=== PATIENT | female | born 1965 | race Caucasian/White ===

== ENCOUNTER 2022-06-20 20:17 | Emergency (ER) | payer OTHER, SELFPAY ==
[2022-06-20 20:25] VITALS: BP 180/115; PULSE 82; RESP 18; TEMP 36.6; O2SAT 97; BMI 31.9
--- NOTE | 2022-06-20 20:35 | XRR_ITS ---
PROCEDURE INFORMATION: Exam: XR Left Foot Exam date and time: 06/20/2022 8:59 PM Age: 57 years old Clinical indication: Injury or trauma; Other: Stubbed 3rd digit; Blunt trauma; Foot; Left; Additional info: Middle toe injury TECHNIQUE: Imaging protocol: Radiologic exam of the left foot. Views: 3 or more views. COMPARISON: No relevant prior studies available. FINDINGS: Bones/joints: Calcaneal spur. Soft tissues: Normal. XR/XR foot LT min 3V* [id number] IMPRESSION: 1. No acute findings. 2. Please see toe x-ray report.
--- NOTE | 2022-06-20 20:43 | XRR_ITS ---
PROCEDURE INFORMATION: Exam: XR Left Toe(s) Exam date and time: 06/20/2022 8:59 PM Age: 57 years old Clinical indication: Injury or trauma; Other: Stubbed toe on door. Blunt trauma; Toes; Left lesser toe(s); Additional info: Injury, pain, PT reports previous toe fractures TECHNIQUE: Imaging protocol: Radiologic exam of the left toes. Views: Minimum 2 views. COMPARISON: No relevant prior studies available. FINDINGS: Bones/joints: Possible hairline nondisplaced fracture involving the volar base of the middle toe middle phalanx. Soft tissues: Normal. XR/XR toe LT min 2V [id number] IMPRESSION: Possible hairline nondisplaced fracture involving the volar base of the middle toe middle phalanx.
[2022-06-20] MEDS: ketorolac 10 mg Tablet PO (22:14)
[2022-06-20 22:28] VITALS: PULSE 81; RESP 18; O2SAT 97
--- NOTE | 2022-06-20 22:52 | ED_ITS ---
HPI - Extremity Problem General: Chief complaint: Extremity Injury, Lower Stated complaint: left foot injury Time Seen by Provider: 06/20/22 20:44 Source: patient Mode of arrival: ambulatory Limitations: no limitations History of Present Illness: Patient presents emergency department today for evaluation treatment of injury to her left toes #3 and 4 after impacting them on a door at home. Patient states she was caring some baby checks into her house and, used her shoulder to bump open the door. She states the door opened into the cabinets which caused it to come back and, the bottom of the door then impacted her toes. Patient had an abrasion that had quite a bit of bleeding- resolved at this time, but has tenderness now in these toes with concerns of deformity to her fourth toe. Patient has difficulty with any weightbearing and ambulation. Review of Systems General: Reports: 10 or more systems reviewed and unremarkable except in HPI and below Musc: Reports: joint pain, joint swelling and deformity (Left fourth toe) Physical Exam Const: COMMON NORMALS: no acute distress, patient oriented x3 and alert HENMT: COMMON NORMALS: normocephalic, atraumatic and hearing grossly normal bilaterally HEAD & SCALP: normocephalic and atraumatic Eye: COMMON NORMALS: Equal, round and reactive pupils present, EOMs intact bilaterally and conjunctivae normal CONJUNCTIVA: Yes conjunctivae normal PUPIL: Yes Equal, round and reactive pupils present Neck/C-Spine: COMMON NORMALS: full ROM and no JVD Lymph: LYMPHATIC: no lymphadenopathy noted Resp: COMMON NORMALS: normal respiratory effort, No retractions and No use of accessory muscles Cardio: COMMON NORMALS: no JVD and regular rate RATE: regular rate Extremity: NARRATIVE EXTREMITY EXAM: Patient has some mild swelling of the left third toe with an abrasion noted to the tip of the toe-not affecting the nail. It is scabbed without active bleeding. It is tender to touch. Patient with significant tenderness of her left fourth toe with mild deformity affecting the distal end. Neuro: COMMON NORMALS: patient oriented x3 SENSORIUM/ORIENTATION: Yes alert Psych: COMMON NORMALS: mental status grossly normal, Normal thought process present, cooperative and normal affect THOUGHT PROCESS: Normal thought process present Skin: COMMON NORMALS: no rashes or lesions noted and turgor normal GENERAL SKIN EXAM: no rashes or lesions noted and turgor normal Course Vital Signs: Vital signs: Vital Signs Temperature 97.9 F 06/20/22 20:25 Pulse Rate 81 06/20/22 22:28 Respiratory Rate 18 06/20/22 22:28 Blood Pressure 180/115 06/20/22 20:25 Pulse Oximetry 97 06/20/22 22:28 Oxygen Delivery Me thod 06/20/22 20:25 MDM - Extremity (Nontraumatic) Medical Decision Making Patient presents emergency department today for evaluation and treatment of injury sustained to 2 of the toes on the left foot. Patient has an abrasion to 1 with bleeding controlled and concerns of deformity to another. Patient's x- rays were read as negative however, in my opinion it appears the distal phalanx of the left fourth digit is dislocated. Physical examination also confirms the suspicion as it is physically deformed and, on palpation is not symmetrical to her right fourth toe. Patient's allergies had not been updated and originally lidocaine had been ordered to perform a ring block. Patient notified us of her allergy and we discussed other options for her pain. Patient is also allergic to all forms of pain medication other than NSAIDs. After much discussion, patient request to have her toes set without any type of pain management. The end of the patient's toe was able to be successfully reduced. Palpable pop resulting in anatomical alignment was noted. Toe was then saad taped. Given the discomfort patient has with any weightbearing we put her into a walking boot to help with her ambulation and to keep weight off of her toes. Encouraged her to use this for the next few days before switching over to closed toed shoes until it is finally healed. Also encouraged her to follow-up with primary care. Patient is given a prescription for Toradol to help with her discomfort and also encouraged application of ice. Differential Diagnosis Likely gout (Toe fracture, toe dislocation, toe contusion, toe abrasion) and cellulitis Lab Data Radiology Impressions Foot X-Ray 06/20/22 20:35 IMPRESSION: 1. No acute findings. 2. Please see toe x-ray report. Toe X-Ray 06/20/22 20:43 IMPRESSION: Possible hairline nondisplaced fracture involving the volar base of the middle toe middle phalanx. Discharge Plan Discharge Patient Disposition: Home Clinical Impression: Closed dislocation of toe of left foot, Abrasion of toe, left Condition: Stable Prescriptions: New ketorolac 10 mg tablet 10 mg PO Q8H PRN (Reason: pain) Qty: 30 0RF Discharge Orders: Discharge ED (Routine); Ordered 06/20/22 Ordered By: Natasha Dawson Discharge Activity: Limit activity as instructed Patient Instructions: Dislocation - Toe Activity Restrictions/Additional Instructions: We were able to reduce the dislocation of the end of your left fourth toe. The x-ray indicated the potential for a possible hairline crack in the middle bone of your left third toe however, was not confirmatory. We do recommend trying to keep your toes saad taped together. In an effort to help keep you more mobile and ambulatory we have provided you a walking boot for your comfort. You may wish to use this for the next 5 to 7 days. After that, you may wish to wear protective, covered shoes until full healing and resolution of pain occurs. You can apply ice for 15 to 20 minutes, multiple times through the day as well. Follow-up with your primary care if needed. Coding Level of Care Code ED [employer] for Perla [facility]
--- NOTE | 2022-07-01 13:14 | DCPLANNER ---
customer account manager called patient due to no primary care physician - no answer at this time - a voicemail was left for patient to return rn case mgr phone call.
== END 2022-06-20 22:29 | disposition home or self-care (01) ==
PROVIDERS: Emergency Provider Physician Assistant
DX: S93.105A Unspecified dislocation of left toe(s), initial encounter (principal); S90.415A Abrasion, left lesser toe(s), initial encounter; W22.8XXA Striking against or struck by other objects, initial encounter
CPT/HCPCS: 73630; 73660; 99283

== ENCOUNTER 2022-06-23 01:03 | Inpatient (IN) | payer OTHER, SELFPAY ==
[2022-06-23] VITALS (13 sets, daily range): BP systolic 130–173; BP diastolic 80–132; PULSE 62–93; RESP 15–26; TEMP 36.6–36.8; O2SAT 94–99; BMI 31.9
--- NOTE | 2022-06-23 01:17 | CTR_ITS ---
PROCEDURE INFORMATION: Exam: CT Abdomen And Pelvis Without Contrast Exam date and time: 06/23/2022 1:43 AM Age: 57 years old Clinical indication: Nausea and vomiting; Abdominal pain; Prior surgery; Surgery type: Gb; Patient HX: C/O left flank pain with n/v. History of surgical removal of left staghorn. TECHNIQUE: Imaging protocol: Computed tomography of the abdomen and pelvis without contrast. Radiation optimization: All CT scans at this facility use at least one of these dose optimization techniques: automated exposure control; mA and/or kV adjustment per patient size (includes targeted exams where dose is matched to clinical indication); or iterative reconstruction. REPORTING DATA: Count of CT and Cardiac NM exams in prior 12 months: This patient has received 0 known CTs and 0 known cardiac nuclear medicine studies in the 12 months prior to the current study. COMPARISON: CT abdomen pelvis w con* [id number] 01/19/2017 7:19 PM RADIATION DOSE METRICS: Total DLP (mGy-cm): 1049.8 FINDINGS: Lungs: The partially imaged lung bases are grossly clear. Liver: No focal intrahepatic lesions are seen. Gallbladder and bile ducts: The gallbladder has been removed. Pancreas: No intraparenchymal lesions are seen. No ductal dilation. Spleen: No intraparenchymal lesions are seen. No splenomegaly. Adrenal glands: Normal. No mass. Kidneys and ureters: Left UPJ 8 mm calculus on series 3, image 94 resulting in moderate left hydronephrosis. Multiple other nonobstructing left renal calculi including a irregular inferior pole calculus that measures up to approximately 11 mm x 8 mm in axial dimension on series 3, image 97. The left kidney appears mildly edematous and there is mild left perinephric fat stranding. There are three nonobstructing 2 mm right renal calculi on series 3 images 89, 90, and 100. Subtle right renal midpole 1.5 cm low attenuating lesion on series 3, image 85 likely represents a benign cyst. No right hydroureter or hydronephrosis. Stomach and bowel: No pathologic bowel dilatation. No obstruction. Appendix: No evidence of appendicitis. Intraperitoneal space: No free air. No abnormal walled-off fluid collection. Vasculature: No abdominal aortic aneurysm. Lymph nodes: No pathologically enlarged lymph nodes. Urinary bladder: Unremarkable as visualized. Reproductive: Unremarkable as visualized. Bones/joints: No acute fracture. [id number] degenerative changes of the partially imaged spine. Soft tissues: Very small fat containing umbilical hernia. CT/CT kidney stone [id number] IMPRESSION: 1. Left UPJ 8 mm calculus on series 3, image 94 resulting in moderate left hydronephrosis. The left kidney appears mildly edematous and there is mild left perinephric fat stranding, can not exclude left pyelonephritis. Correlate and follow-up as clinically indicated. 2. Other bilateral nonobstructing renal calculi as described above. No right hydroureter or hydronephrosis. 3. Other chronic/incidental findings as described above. COMMENTS: Consistent with the [employer]'s Incidental Findings Committee white paper (J Am Kusum Radiol 2018): Any incidental renal lesion less than 1 cm or classified as too small to characterize, or any incidental cystic renal lesion characterized as simple-appearing, is likely benign. No follow-up imaging is recommended for these lesions per consensus recommendations based on imaging criteria.
--- NOTE | 2022-06-23 01:17 | W.ED.ABDPA2 ---
HPI - Abdominal Pain General: Chief Complaint: Abdominal Pain Stated Complaint: Left Side Possible Kidney Time Seen by Provider: 06/23/22 01:13 Source: patient Mode of arrival: ambulatory Limitations: no limitations History of Present Illness: 57-year-old female who states that she been having left flank pain since 6:00 this evening she states it severe in nature rates it a 9 out of 10 she denies any worsening proving factors she is also had nausea and vomiting with this pain she had history of kidney stones this feels similar. Denies any dysuria. Associated Symptoms: Reports nausea and vomiting; Denies chills and fever(s) Review of Systems Const: Denies: fever(s), chills, body aches or change in appetite Eyes: Denies: blurry vision or eye discomfort ENMT: Denies: throat pain or dental pain Card: Denies: chest pain Resp: Denies: dyspnea GI: Reports: nausea and vomiting : Reports: flank pain Musc: Denies: neck pain or back pain Skin/Breast: Denies: rash Neuro: Denies: headache(s) Psych: Denies: depression Tyler/Lymph: Denies: easy bruising All/Imm: Denies: urticaria PFSH ED PFSH: Medical History No pertinent past medical history Social History (Updated 06/23/22 @ 01:18 by Burke Lau MD) Substance/Drug Use: never Physical Exam Const: COMMON NORMALS: no acute distress, patient oriented x3 and healthy appearing HENMT: COMMON NORMALS: normocephalic and atraumatic HEAD & SCALP: normocephalic and atraumatic Eye: COMMON NORMALS: Equal, round and reactive pupils present and EOMs intact bilaterally PUPIL: Yes Equal, round and reactive pupils present Neck/C-Spine: COMMON NORMALS: full ROM and supple Chest: COMMONS NORMALS: normal inspection of the chest and normal palpation of entire chest wall Resp: COMMON NORMALS: normal respiratory effort, No retractions, No use of accessory muscles and clear to auscultation bilaterally AUSCULTATION: clear to auscultation bilaterally Cardio: COMMON NORMALS: regular rate, regular rhythm and No murmurs present (Cardio) RATE: regular rate RHYTHM: regular rhythm GI: COMMON NORMALS: Normal to inspection, nondistended, normoactive bowel sounds present, Soft to palpation, non-tender and no masses PALPATION: Yes Soft to palpation Extremity: COMMON NORMALS: normal to inspection and full ROM Neuro: COMMON NORMALS: patient oriented x3, moves all extremities and no focal motor deficits Psych: COMMON NORMALS: mental status grossly normal, Normal thought process present and cooperative THOUGHT PROCESS: Normal thought process present Skin: COMMON NORMALS: no rashes or lesions noted and no wounds GENERAL SKIN EXAM: no rashes or lesions noted Course Vital Signs: Vital signs: Vital Signs Temperature 98.1 F 06/23/22 01:04 Pulse Rate 68 06/23/22 03:14 Respiratory Rate 18 06/23/22 03:14 Blood Pressure 151/87 06/23/22 03:14 Pulse Oximetry 95 06/23/22 03:14 Oxygen Delivery Me thod 06/23/22 03:14 MDM - Abdominal Pain Medical Decision Making Patient presents here with kidney stone and its proximal 8 mm also with nitrite positive urine of spoke to Dr. Porras who will admit this time will give IV antibiotics her pain has improved here. Lab Data 06/23/22 01:20 06/23/22 01:20 Labs/Radiology: Radiology Impressions Abdomen/Pelvis CT 06/23/22 01:17 IMPRESSION: 1. Left UPJ 8 mm calculus on series 3, image 94 resulting in moderate left hydronephrosis. The left kidney appears mildly edematous and there is mild left perinephric fat stranding, can not exclude left pyelonephritis. Correlate and follow-up as clinically indicated. 2. Other bilateral nonobstructing renal calculi as described above. No right hydroureter or hydronephrosis. 3. Other chronic/incidental findings as described above. COMMENTS: Consistent with the [employer]'s Incidental Findings Committee white paper (J Am Kusum Radiol 2018): Any incidental renal lesion less than 1 cm or classified as too small to characterize, or any incidental cystic renal lesion characterized as simple-appearing, is likely benign. No follow-up imaging is recommended for these lesions per consensus recommendations based on imaging criteria. Laboratory Results WBC 9.6 10^3/uL (4.0-10.0) 06/23/22 01:20 RBC 4.75 10^6/uL (4.1-5.3) 06/23/22 01:20 Hgb 14.0 g/dL (11.5-15.3) 06/23/22 01:20 Hct 43.5 % (37.0-47.0) 06/23/22 01:20 MCV 91.6 fl (81-99) 06/23/22 01:20 MCH 29.5 pg (28.0-34.0) 06/23/22 01:20 MCHC 32.2 g/dL (30.0-36.0) 06/23/22 01:20 RDW 13.2 % (12.1-15.1) 06/23/22 01:20 Plt Count 259 10^3/cmm (130-400) 06/23/22 01:20 MPV 10.1 fL (7.4-10.4) 06/23/22 01:20 Neut % (Auto) 65.1 % 06/23/22 01:20 Lymph % (Auto) 19.6 % 06/23/22 01:20 [place] % (Auto) 6.6 % 06/23/22 01:20 Eos % (Auto) 7.6 % 06/23/22 01:20 Baso % (Auto) 0.9 % 06/23/22 01:20 Neut # (Auto) 6.26 10^3/uL (1.8-7.7) 06/23/22 01:20 Lymph # (Auto) 1.9 10^3/uL (0.8-4.8) 06/23/22 01:20 [place] # (Auto) 0.6 10^3/uL (0.2-0.9) 06/23/22 01:20 Eos # (Auto) 0.7 10^3/uL (0.0-0.8) 06/23/22 01:20 Baso # (Auto) 0.1 10^3/uL (0.0-0.1) 06/23/22 01:20 Nucleated RBC % (auto) 0 % 06/23/22 01:20 Nucleated RBCs # 0.0 /100WBC 06/23/22 01:20 Sodium 141 mmol/L (136-145) 06/23/22 01:20 Potassium 3.9 mmol/L (3.5-5.1) 06/23/22 01:20 Chloride 105 mmol/L (98-107) 06/23/22 01:20 Carbon Dioxide 25 mmol/L (22-29) 06/23/22 01:20 Anion Gap 14.9 (5-19) 06/23/22 01:20 BUN 12 mg/dL (6-20) 06/23/22 01:20 Creatinine 0.9 mg/dL (0.5-0.9) 06/23/22 01:20 GFR Calculation 64.1 mL/min (90-130) L 06/23/22 01:20 Glucose 125 mg/dL (65-115) H 06/23/22 01:20 Calculated Osmolality 293 mOsm/kg (285-295) 06/23/22 01:20 Calcium 11.0 mg/dL (8.5-10.5) H 06/23/22 01:20 Total Bilirubin 0.2 mg/dL (0.15-1.2) 06/23/22 01:20 AST 18 U/L (0-32) 06/23/22 01:20 ALT 15 U/L (0-33) 06/23/22 01:20 Alkaline Phosphatase 90 U/L (35-105) 06/23/22 01:20 Total Protein 7.1 g/dL (6.6-8.7) 06/23/22 01:20 Albumin 3.9 g/dL (3.5-5.2) 06/23/22 01:20 Globulin 3.2 g/dL (1.3-4.6) 06/23/22 01:20 Lipase 61 U/L (13-60) H 06/23/22 01:20 Urine Color Yellow (Yellow) 06/23/22 02:04 Urine Appearance Clear (CLEAR) 06/23/22 02:04 Urine pH 7 (5-7) 06/23/22 02:04 Ur Specific [place] 1.015 (1.005-1.030) 06/23/22 02:04 Urine Protein Trace (Negative) 06/23/22 02:04 Urine Glucose (UA) Norm (Normal) 06/23/22 02:04 Urine Ketones Negative (Negative) 06/23/22 02:04 Urine Blood 2+ (Negative) H 06/23/22 02:04 Urine Nitrate Positive (Negative) H 06/23/22 02:04 Urine Bilirubin Neg (Negative) 06/23/22 02:04 Urine Urobilinogen Norm mg/dL (Negative) 06/23/22 02:04 Ur Leukocyte Esterase Negative (Negative) 06/23/22 02:04 Urine RBC 0-4 /hpf (0-2) H 06/23/22 02:04 Urine WBC 0-4 /hpf (0-5) H 06/23/22 02:04 Ur Squamous Epith Cells 0-4 /hpf (0-5) H 06/23/22 02:04 Amorphous Sediment 1+ /hpf 06/23/22 02:04 Urine Bacteria Trace /hpf (NONE) 06/23/22 02:04 Discharge Plan Discharge Patient Disposition: Admitted As Inpatient Clinical Impression: Kidney stone Discharge Diet: Advance as tolerated Coding Level of Care Code ED [employer] for Perla Bishop
[2022-06-23 01:27] LABS: Basophils # 0.1 10^3/uL (0.0-0.1); Basophils % 0.9 %; Eosinophils # 0.7 10^3/uL (0.0-0.8); Eosinophils % 7.6 %; Hematocrit 43.5 % (37.0-47.0); Lymphocytes # 1.9 10^3/uL (0.8-4.8); Lymphocytes % 19.6 %; Mean Corpuscular HGB Conc 32.2 g/dL (30.0-36.0); Mean Corpuscular Hemoglobin 29.5 pg (28.0-34.0); Mean Corpuscular Volume 91.6 fl (81-99); Mean Platelet Volume 10.1 fL (7.4-10.4); Monocytes # 0.6 10^3/uL (0.2-0.9); Monocytes % 6.6 %; Neutrophils # 6.26 10^3/uL (1.8-7.7); Neutrophils % 65.1 %; Nucleated Red Blood Cells % 0 %; Platelet Count 259 10^3/cmm (130-400); Red Blood Count 4.75 10^6/uL (4.1-5.3); Red Cell Distribution Width 13.2 % (12.1-15.1); White Blood Count 9.6 10^3/uL (4.0-10.0)
[2022-06-23] MEDS: sodium chloride 0.9% 1,000 ML 999 ML IV (01:27)
[2022-06-23] MEDS: ondansetron 2 mg/ML SDV 2 mL 4 MG IVP (01:28)
[2022-06-23] MEDS: HYDROmorphone 1 mg/mL INJ 1 mL IVP ×2 (01:28→03:34)
[2022-06-23] MEDS: metoclopramide 5 mg/mL SDV 2 mL 10 MG IVP (01:35)
[2022-06-23] MEDS: diphenhydrAMINE 50 mg/mL SDV 1mL IVP (01:35)
[2022-06-23 01:41] LABS: Alanine Aminotransferase 15 U/L (0-33); Albumin Level 3.9 g/dL (3.5-5.2); Alkaline Phosphatase 90 U/L (35-105); Anion Gap 14.9 (5-19); Aspartate Amino Transferase 18 U/L (0-32); Blood Urea Nitrogen 12 mg/dL (6-20); Carbon Dioxide 25 mmol/L (22-29); Chloride 105 mmol/L (98-107); Globulin 3.2 g/dL (1.3-4.6); Glomerular Filtration Rate 64.1 mL/min (90-130); Glucose 125 mg/dL (65-115); Lipase 61 U/L (13-60); Osmolality Calculated 293 mOsm/kg (285-295); Potassium 3.9 mmol/L (3.5-5.1); Sodium 141 mmol/L (136-145); Total Bilirubin 0.2 mg/dL (0.15-1.2); Total Protein 7.1 g/dL (6.6-8.7)
[2022-06-23 02:31] LABS: Urine Appearance Clear (CLEAR); Urine Color Yellow (Yellow); pH Urine 7 (5-7)
[2022-06-23 02:32] LABS: Add Urine Culture? No; Add Urine Microscopic? YES; Amorphous Sediment Urine 1+ /hpf; Bacteria Urine TRACE /hpf; Bilirubin Urine Neg (Negative); Blood Urine 2+ (Negative); Glucose Urine UA Norm (Normal); Ketones Urine Negative (Negative); Leukocyte Esterase Urine Negative (Negative); Nitrate Urine Positive (Negative); Protein Urine Trace (Negative); RBC Urine 0-4 /hpf (0-2); Specific Gravity, Urine 1.015 (1.005-1.030); Squamous Epithelial Cell Urine 0-4 /hpf (0-5); Urobilinogen Urine Norm (Negative); WBC Urine 0-4 /hpf (0-5)
[2022-06-23] MEDS: cefTRIAXone 1,000 MG in sodium chloride 0.9% (plus) 50 ML 100 MG IV ×2 (03:34→16:37)
[2022-06-23] MEDS: sodium chloride 0.9% 1,000 ML 100 ML IV (04:58)
--- NOTE | 2022-06-23 06:45 | PM.HP ---
Providers/Chief Complaint Admitting Physician: Alcides Vasquez MD Chief Complaint: Left Side Possible Kidney History of Present Illness Rosa M Sanz is a 57 year old female previously evaluated in 2017 with a history of obstructive pyelonephritis with treatment related to initial stent placement in the face of infection followed by delayed ESWL with complete resolution on follow-up. Was instructed to follow-up in 6 months with a KUB but did not. She was admitted last night through the emergency department with complaints of an obstructing 8 mm left proximal ureteral stone with evidence of UTI but no sepsis. White count was normal. She had been afebrile. CT scan findings: Multiple small punctate stones in the RIGHT kidney, multiple moderate-sized stones in the left kidney, 8 mm stone at the left UPJ with obstruction. Her overall stone burden has substantially increased since December 2016 at time of her last CT scan. Because of the concern for obstruction and infection she was admitted last night for further evaluation and treatment. Pain was described as severe and typical for renal colic. Additional symptoms included nausea and vomiting. No fever or chills. Patient stated that fairly recently she had a percutaneous nephrostolithotomy by Dr. Benjamin Hdz at [facility]. She was not aware of stone analysis. She has a follow-up appointment scheduled next week with Dr. Hdz I reviewed in detail with the patient the findings and the concerns related to infection. She does not have any evidence of sepsis. I recommended that she continue antibiotics today and then plan for cystoscopy and left ureteral stent placement tomorrow if all goes well as far as infectious concerns then consider endoscopic treatment of the stone both ureteral as well as the residual fragments in the left lower pole and other accessible stones. Did review with her that the most important thing that was drainage if there is any question of factious concern. All of this was explained in detail. She has given informed consent. Benefits risk potential complications alternatives thoroughly reviewed. She has a good understanding. We also discussed the importance of long-term follow-up. Reviewed my residential in August. We will encourage her to follow-up with Dr. Hdz long-term for stone risk management. 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 Review of Systems Const: Denies: fever(s) or chills Eyes: Denies: change in vision or eye discharge ENMT: Denies: hoarseness Card: Denies: chest pain or palpitations Resp: Denies: dyspnea or productive cough GI: Reports: abdominal pain, nausea and vomiting : Reports: flank pain; Denies: dysuria Musc: Reports: back pain; Denies: joint redness Skin/Breast: Denies: jaundice Neuro: Denies: confusion, behavioral changes or Slurred speech present Psych: Denies: memory loss Endo: Denies: flushing Tyler/Lymph: Denies: easy bruising or easy bleeding All/Imm: Denies: urticaria or acute wheezing Medications/Allergies Home Medications Medication Instructions Recorded Confirmed Last Taken Type ketorolac 10 mg tablet 10 mg PO Q8H PRN pain #30 tabs 06/20/22 Unknown Rx Allergies Allergy/AdvReac Type Severity Reaction Status Date / Time albuterol Allergy Unknown Verified 06/23/22 01:32 codeine Allergy Unknown Verified 06/23/22 01:32 lidocaine Allergy ALGY-Anaphy Verified 06/20/22 21:49 laxis meperidine [From Demerol] Allergy Unknown Verified 06/23/22 01:32 Penicillins Allergy Unknown Verified 06/23/22 01:32 promethazine [From Phenergan] Allergy Unknown Verified 06/23/22 01:32 PFSH Acute PFSH: Medical History (Updated 06/23/22 @ 06:56 by Alcides Vasquez MD) Urolithiasis Renal and ureteral calculi history Surgical History (Updated 06/23/22 @ 07:35 by Alcides Vasquez MD) History of bilateral breast reduction surgery History of cholecystectomy History of lithotripsy History of removal of calculus of renal pelvis through percutaneous nephrostomy History of ureter stent Family History (Updated 06/23/22 @ 06:54 by Alcides Vasquez MD) Denies family history of Anesthesia complication Bleeding disorder Social History (Updated 06/23/22 @ 06:54 by Alcides Vasquez MD) Smoking and tobacco status: never smoked Substance/Drug Use: never Vitals/I&O/Wt Last Vital Signs Temp 97.9 F 06/23/22 04:29 Pulse 73 06/23/22 04:29 Resp 17 06/23/22 04:29 BP 165/92 06/23/22 04:29 Pulse Ox 94 06/23/22 04:29 O2 Del Method 06/23/22 04:15 06/22/22 06/22/22 06/23/22 14:59 22:59 06:59 Intake Total 1050 / 1050 Balance 1050 / 1050 Weight last 48 hrs Weight 198 lb Weight 198 lb Physical Exam Const: COMMON NORMALS: alert and well nourished GENERAL APPEARANCE: well kempt and well developed ORIENTATION/CONSCIOUSNESS: not confused HENMT: COMMON NORMALS: normocephalic HEAD & SCALP: normal to inspection and normocephalic Eye: COMMON NORMALS: conjunctivae normal and no scleral icterus CONJUNCTIVA: Yes conjunctivae normal Neck/C-Spine: GENERAL: Yes normal visual inspection Lymph: LYMPHATIC: no lymphadenopathy noted and no lymphedema noted Chest: OTHER: Normal chest movements Resp: COMMON NORMALS: normal respiratory effort EFFORT & INSPECTION: Yes able to speak in complete sentences, No labored and No Actively coughing Cardio: COMMON NORMALS: regular rate and regular rhythm GI: OTHER: Left-sided abdominal tenderness no masses. Normal active bowel sounds. : OTHER: Left CVA tenderness Extremity: COMMON NORMALS: no clubbing, cyanosis or edema Neuro: COMMON NORMALS: no focal motor deficits SENSORIUM/ORIENTATION: Yes alert Psych: COMMON NORMALS: mental status grossly normal APPEARANCE: Yes grossly normal and Yes well kempt ATTITUDE: Yes calm and Yes engaged Skin: COMMON NORMALS: no rashes or lesions noted and no jaundice GENERAL SKIN EXAM: no rashes or lesions noted Data 06/23/22 01:20 06/23/22 01:20 A&P Assessment and plan (1) Left ureteral calculus: 8 millimeter left UPJ stone with obstruction complicated by UTI. No evidence of sepsis. (2) UTI (urinary tract infection): (3) Urolithiasis: Plan 1. Admit for IV antibiotics close observation 2. Consider stent placement and/or endoscopic treatment of the stone after antibiotic therapy Attestations Medical Necessity Statement*: UTI and obstructing stone Coding Level of Care Code Acute Code for [facility] Fwd Diagnoses Left ureteral calculus N20.1 UTI (urinary tract infection) N39.0 Urolithiasis N20.9
--- NOTE | 2022-06-23 09:07 | PC.PHAR ---
pt states she takes care of her own medications-pt states she is taking zoloft 25mg taking 12.5mg bid [facility] last filled 12/15/21 90d/s for 50mg daily-pt states she has a flovent 110mcg inhaler prn [facility] last filled 04/11/21-pt states she takes ultram 50mg hs prn [facility] not filled for pt ext med history shows last filled 50mg qid prn for 5 days filled 03/13/22 #20 5d/s-pt states she is no longer using the ipratropium 0.02% solution last filled 11/24/21 90d/s 1 vial daily-notes are made in the pharmacy comments
[2022-06-23] MEDS: morphine 4 mg/mL SDV 1 mL 2 MG IVP ×4 (09:55→23:24)
[2022-06-23] MEDS: D5-NS 0.45% + KCL 20 mEq 20 MEQ/1,000 ML BAG 75 MEQ IV ×2 (09:57→23:21)
[2022-06-23] MEDS: ketorolac 30 mg/mL INJ 15 MG IVP (17:52)
[2022-06-24] VITALS (20 sets, daily range): BP systolic 118–179; BP diastolic 70–99; PULSE 53–558; RESP 12–23; TEMP 36.2–37.2; O2SAT 91–98
[2022-06-24] MEDS: cefTRIAXone 1,000 MG in sodium chloride 0.9% (plus) 50 ML 100 MG IV ×2 (03:36→15:13)
--- NOTE | 2022-06-24 06:16 | PC.NURSE ---
transported to surgery for procedure.
--- NOTE | 2022-06-24 06:43 | PM.PN ---
Subjective Subjective: Urology follow-up Hospital day #2 Did well overnight. No fever or evidence of infectious progression on IV antibiotics. Pain well controlled. No stone passage. We reviewed her options again. These include: 1. Stent placement with delayed ureteroscopy or ESWL for treatment of the residual stones post left nephrostolithotomy 2. Attempt at endoscopic treatment of the stone assuming no evidence of hemodynamic instability 3. Continue IV antibiotics alone with hopes of spontaneous passage of the stones. I have recommended #2 as a reasonable option given her lack of infectious progression on antibiotics. Also reviewed that she may require a stent placement with delayed approach if there is any question about infectious concerns during the procedure or if access is not obtainable from a retrograde approach at that point a stent would be placed for passive dilation and reattempt later either with ESWL or ureteroscopy Procedure was discussed in detail. Explained expectations perioperatively. Benefits and risks thoroughly reviewed. Alternatives discussed as above. Informed consent obtained DECISION FOR SURGERY today Medications: Reviewed: Yes Vitals/I&O/Wt Last Vital Signs Temp 98.9 F 06/24/22 06:14 Pulse 80 06/24/22 06:14 Resp 16 06/24/22 06:14 BP 179/99 06/24/22 06:14 Pulse Ox 96 06/24/22 06:14 O2 Del Method 06/24/22 06:14 06/23/22 06/23/22 06/24/22 14:59 22:59 06:59 Intake Total 1181 / 1181 410 / 1591 1000 / 2591 Balance 1181 / 1181 410 / 1591 1000 / 2591 Weight last 48 hrs Weight 198 lb Weight 198 lb Physical Exam Const: COMMON NORMALS: alert and well nourished GENERAL APPEARANCE: well kempt and well developed ORIENTATION/CONSCIOUSNESS: not confused Chest: OTHER: Normal chest movements Resp: COMMON NORMALS: normal respiratory effort EFFORT & INSPECTION: Yes able to speak in complete sentences, No labored and No Actively coughing Cardio: COMMON NORMALS: regular rate and regular rhythm RATE: regular rate RHYTHM: regular rhythm : OTHER: Left CVA tenderness Neuro: COMMON NORMALS: no focal motor deficits SENSORIUM/ORIENTATION: Yes alert Psych: COMMON NORMALS: mental status grossly normal APPEARANCE: Yes grossly normal and Yes well kempt ATTITUDE: Yes calm and Yes engaged Skin: COMMON NORMALS: no rashes or lesions noted and no jaundice GENERAL SKIN EXAM: no rashes or lesions noted Data 06/23/22 01:20 06/23/22 01:20 A&P Assessment and plan (1) Left ureteral calculus: Obstructing left proximal ureteral stone Decision today to proceed for surgical intervention. (2) Urolithiasis: Some residual left renal calculi mostly in the lower pole and 1 in the interpolar area. Plan to try and access these with flexible ureterorenoscopy if clinical criteria met intraoperatively (3) UTI (urinary tract infection): No evidence of infection progression. Plan See [facility] Attestations Medical Necessity Statement*: Surgical intervention. We will watch over the day after the procedure to make sure there is no infection concerns. Discharge will be dependent upon primarily infectious concerns. Coding Level of Care Code Acute Code for [facility] Fwd Diagnoses Left ureteral calculus N20.1 Urolithiasis N20.9 UTI (urinary tract infection) N39.0
[2022-06-24] MEDS: sodium chloride 0.9% 1,000 ML 30 ML IV (06:50)
--- NOTE | 2022-06-24 07:00 | SC_ITS ---
WS: [id number] Exam: C-arm FL for Urology Date/Time of Exam: 06/24/2022 7:00 AM Reason For Exam: Left ureteroscopy A single anterior posterior C-arm image of the upper left abdomen is submitted. The image depicts a p igtail catheter ending in the upper left abdomen. No other significant finding on this limited study.
--- NOTE | 2022-06-24 08:44 | PM.OP ---
Operative Report Date of procedure: June 24, 2022 Pre-op diagnosis: 1. Left proximal ureteral stone with obstruction 2. Multiple left renal calculi 3. Recently diagnosed UTI without evidence of sepsis Post-op diagnosis: 1. Left proximal ureteral stone with obstruction 2. Multiple left renal calculi 3. Recently diagnosed UTI without evidence of sepsis Procedure done: 1. Cystoscopy, LEFT retrograde ureteropyelogram 2. Left ureteroscopy, laser lithotripsy 3. Left renoscopy laser lithotripsy different location 4. Left ureteral stent 5. Intraoperative fluoroscopy independent of radiology interpretation Implants: Left ureteral stent Specimens removed/disposition: Stone fragments Pathology: Stone fragments Surgeon: Pedro Estimated blood loss: Minimal Urine output: Not measured Complications: None Findings: Anesthesia: General Condition: Stable Disposition: PACU Intraoperative findings: The obstructing ureteral stone migrated into the kidney and it was fragmented completely with a 200 ?m thulium superpulse laser fiber. Second largest accumulation of stone was in the lower pole calyx and this was only partially accessible via flexible ureteroscopy with an extensive amount of time spent trying to manipulate the scope into position were all the stones could be lasered. Stent left indwelling without string. Brief History: Ms. Sanz is a very pleasant 57-year-old white female with a complex history of urolithiasis complicated by UTI. In February 2022 she underwent a left percutaneous nephrostolithotomy by Dr. Noel at [facility] in [facility]. She has scheduled follow-up with him. On the day of admission she presented to the emergency department with severe left renal colicky type symptoms typical for prior ureteral calculus and there was evidence of a UTI. White count was acceptable. No evidence of sepsis. Work-up demonstrated a 10 mm stone in the left proximal ureter, multiple residual stone fragments although overall small burden relative to what was removed at [facility] in the left kidney. Her urine did look infected. She was placed on IV antibiotics. She had no progression of infectious concerns and ultimately elected to proceed with endoscopic treatment of the obstructing stone and if possible and access could be obtained to the kidney easily with a retrograde approach then try to clear out his many residual stone fragments as possible See progress notes Procedure: After routine preoperative evaluation examination and obtaining of informed consent she was taken to the operating suite on 06/24/2022 where general anesthesia was administered without difficulty after appropriate timeout was performed, SCDs confirmed to be functioning, preoperative antibiotics administered, beta-mike protocol confirmed. Prepped and draped in usual sterile fashion in dorsolithotomy position pain careful attention to avoiding pressure points. 21 Setswana cystoscope with 30 degree lens was introduced into the urethral meatus and advanced into the bladder without difficulty. The bladder was systematically examined. No stones were seen. An 8 Setswana cone-tip catheter was intubated into the left ureteral orifice for left retrograde ureteropyelogram which demonstrated: Normal course and caliber of the left ureter from the ureteral orifice up to the proximal ureter where a filling defect consistent with a stone seen on CT scan was identified. The ureter proximal to that point was dilated. The additional stones were not readily identified on fluoroscopy. Flexible tip guidewire was then advanced up the left ureter bypassing the stone curling in the area of the upper pole calyx. A second guidewire was then passed. The first was secured to the drapes as a safety wire the second was used as a working wire. The inner sheath of a 38 cm ureteral access sheath was then advanced up the left ureter as as a dilator and then the full access sheath was advanced over the guidewire to just below the level of the stone. A 7 Setswana offset semirigid ureteroscope was then advanced over the guidewire to the stone which was discovered to have migrated proximally into the renal pelvis and not accessible via the rigid scope. At scope was then exchanged for a flexible ureteroscope which easily access the renal pelvis the stone was identified being in an upper pole calyx and it was fragmented completely with a 200 ?m thulium superpulse laser fiber. There were no substantial fragments remaining and it was just essentially sand. The scope was then redirected into several different calyces. The largest bulk of residual stones post percutaneous nephrostolithotomy were in the lower pole. These were only partially accessible with the scope. Laser lithotripsy was performed on them but there still remained a fairly sizable amount of stone that just could not be reached with different manipulation tactics. Ultimately the procedure was completed after access was exhausted for those residual stones. The system was carefully inspected again and no other obvious large pieces could be identified other than those not accessible. The access sheath was then backed onto the hub and the ureter was carefully inspected as the scope was withdrawn. The ureter was in good shape. Cystoscope was then backloaded over the safety wire and a 7 Setswana by 28 cm double-pigtail stent was advanced over the guidewire through the cystoscope into appropriate position as confirmed via fluoroscopy and cystoscopy. Stent was confirmed to be functioning. The bladder was drained. There is a few little small fragments in the bladder that were flushed out to be sent as part of the specimen. Specimen consisted mostly of grit and sand. She tolerated procedure well without complications and was awakened in the operating room and returned to the PACU in stable condition. PLANS: 1. Observe throughout the day. Potentially discharged this evening or continue observation overnight to ensure no concerns related to potential infectious progression 2. We will plan on leaving the stent in for about a week or 2. Follow-up will be arranged at discharge
[2022-06-24] MEDS: ondansetron 2 mg/ML SDV 2 mL 4 MG IVP (09:02)
[2022-06-24] MEDS: scopolamine 1.5 Patch 1 PATCH TRANSDERMA (09:02)
--- NOTE | 2022-06-24 09:08 | PC.NURSE ---
Nausea on arrival to PACU. Scope patch per Dr. Ayala. Evelyn per orders.
--- NOTE | 2022-06-24 09:45 | ANES.PREANE2 ---
Pre-Anesthetic Assessment Height/Weight: Height 1.68 m Weight 89.811 kg Temp Pulse Resp BP Pulse Ox O2 Del Method O2 Flow Rate 97.4 F L 558 H 20 H 120/74 95 2 06/24/22 09:30 06/24/22 09:30 06/24/22 09:30 06/24/22 09:30 06/24/22 09:30 06/24/22 09:30 06/24/22 09:25 Operation Date: 06/24/22 07:00 Proposed Procedures p Cystoscopy(Left) - Alcides Vasquez MD s Retrograde Pyelogram(Left) - Alcides Vasquez MD s Ureteroscopy(Left) - Alcides Vasquez MD s Laser Lithotripsy(Left) - Alcides Vasquez MD s Ureteral Stent Placement(Left) - Alcides Vasquez MD Familial anesthetic complications: none Was Beta Roxana taken within 24 hours: N/A Was Clonidine taken within 24 hours: N/A Social No alcohol and No tobacco Exam alert, oriented x 3, clear to auscultation bilaterally and regular rate & rhythm Airway Submandibular: within normal limits Cervical ROM: within normal limits Mallampati: Class II Dentition: full Renal stones Metabolic Morbid Obesity Musc/[facility] Osteoarthritis/DJD Neuropsych Anxiety and Depression Anesthetic Plan ASA status: 2 Anesthesia: General Medications/Allergies Home Medications Medication Instructions Recorded Confirmed Last Taken Type ketorolac 10 mg tablet 10 mg PO Q8H PRN pain #30 tabs 06/20/22 06/23/22 Unknown Rx ascorbic acid (vitamin C) 500 mg 500 mg PO QAM 06/23/22 06/23/22 Unknown History tablet (Vitamin C) cyanocobalamin (vitamin B-12) 1,000 mcg PO QAM 06/23/22 06/23/22 Unknown History 1,000 mcg tablet (Vitamin B-12) epinephrine 0.3 mg/0.3 mL 0.3 mg IM PRN PRN Anaphylaxis 06/23/22 06/23/22 Unknown History injection, auto-injector (EpiPen 2-Howard) fluticasone propionate 110 1 puff inhalation DAILY PRN unknown 06/23/22 06/23/22 Unknown History mcg/actuation HFA aerosol inhaler (Flovent HFA) sertraline 25 mg tablet (Zoloft) 12.5 mg PO BID 06/23/22 06/23/22 Unknown History tramadol 50 mg tablet 50 mg PO BEDTIME PRN sleep/pain 06/23/22 06/23/22 Unknown History zinc acetate 50 mg (zinc) capsule 50 mg PO QAM 06/23/22 06/23/22 Unknown History Allergies Allergy/AdvReac Type Severity Reaction Status Date / Time acetaminophen [From Percocet] Allergy Unknown Verified 06/23/22 09:07 albuterol Allergy Unknown Verified 06/23/22 01:32 cox Allergy Unknown Verified 06/23/22 09:07 codeine Allergy Unknown Verified 06/23/22 01:32 grass pollen Allergy Unconscious Verified 06/23/22 09:07 lidocaine Allergy ALGY-Anaphy Verified 06/20/22 21:49 laxis meperidine [From Demerol] Allergy Unknown Verified 06/23/22 01:32 oxycodone [From Percocet] Allergy Unknown Verified 06/23/22 09:07 Penicillins Allergy Unknown Verified 06/23/22 01:32 promethazine [From Phenergan] Allergy Unknown Verified 06/23/22 01:32 tree and shrub pollen Allergy Unknown Verified 06/23/22 09:07 Current Medications Generic Name Dose Route Start Last Admin Trade Name Freq PRN Reason Stop Dose Admin Potassium Chloride/Dextrose/Sod Cl 20 meq in 1,000 mls @ 75 mls/hr 06/23/22 07:30 06/23/22 23:21 D5-Ns 0.45% + Kcl 20 Meq IV 75 mls/hr .[id number] MIGUEL Administration Ceftriaxone Sodium 1,000 mg/ 50 mls @ 100 mls/hr 06/23/22 15:30 06/24/22 03:36 Sodium Chloride IV 100 mls/hr Q12H MIGUEL Administration Protocol Sodium Chloride 1,000 mls @ 30 mls/hr 06/24/22 06:30 06/24/22 06:50 Sodium Chloride 0.9% IV 06/25/22 06:29 30 mls/hr .Q24H MIGUEL Administration Ketorolac Tromethamine 15 mg 06/23/22 07:25 06/23/22 17:52 Ketorolac 30 Mg/Ml Inj IVP 06/28/22 07:24 15 mg Q6H PRN Administration MODERATE PAIN Morphine Sulfate 2 mg 06/23/22 07:25 06/23/22 23:24 Morphine 4 Mg/Ml Sdv 1 Ml IVP 2 mg Q2H PRN Administration SEVERE PAIN Ondansetron HCl 4 mg 06/24/22 07:22 06/24/22 09:02 Ondansetron 2 Mg/Ml Sdv 2 Ml IVP 4 mg ONCE PRN Administration Nausea PACU Phase I PFSH Anesthesia Medical History (Updated 06/23/22 @ 06:56 by Alcides Vasquez MD) Urolithiasis Renal and ureteral calculi history Surgical History (Updated 06/23/22 @ 07:35 by Alcides Vasquze MD) History of bilateral breast reduction surgery History of cholecystectomy History of lithotripsy History of removal of calculus of renal pelvis through percutaneous nephrostomy History of ureter stent Family History (Updated 06/23/22 @ 06:54 by Alcides Vasquez MD) Denies family history of Anesthesia complication Bleeding disorder Social History (Updated 06/23/22 @ 06:54 by Alcides Vasquez MD) Smoking and tobacco status: never smoked Substance/Drug Use: never Data Anesthesia 06/23/22 01:20 06/23/22 01:20 Short CBC 06/23/22 Range/Units 01:20 WBC 9.6 (4.0-10.0) 10^3/uL Hgb 14.0 (11.5-15.3) g/dL Hct 43.5 (37.0-47.0) % MCV 91.6 (81-99) fl Plt Count 259 (130-400) 10^3/cmm Neut % (Auto) 65.1 % Neut # (Auto) 6.26 (1.8-7.7) 10^3/uL BMP 06/23/22 01:20 Sodium 141 Potassium 3.9 Chloride 105 Carbon Dioxide 25 BUN 12 Creatinine 0.9 Glucose 125 H Calcium 11.0 H Liver Function 06/23/22 Range/Units 01:20 Total Bilirubin 0.2 (0.15-1.2) mg/dL AST 18 (0-32) U/L ALT 15 (0-33) U/L Alkaline Phosphatase 90 (35-105) U/L Albumin 3.9 (3.5-5.2) g/dL Urine 06/23/22 Range/Units 02:04 Urine Color Yellow (Yellow) Urine Appearance Clear (CLEAR) Urine pH 7 (5-7) Ur Specific [place] 1.015 (1.005-1.030) Urine Protein Trace (Negative) Urine Glucose (UA) Norm (Normal) Urine Ketones Negative (Negative) Urine Nitrate Positive H (Negative) Urine Bilirubin Neg (Negative) Ur Leukocyte Esterase Negative (Negative) Urine RBC 0-4 H (0-2) /hpf Urine WBC 0-4 H (0-5) /hpf Cardiac Studies: No Data to Display
[2022-06-24] MEDS: sertraline 50 mg Tablet 12.5 MG PO ×2 (12:46→17:36)
[2022-06-24] MEDS: D5-NS 0.45% + KCL 20 mEq 20 MEQ/1,000 ML BAG 75 MEQ IV (12:51)
[2022-06-24] MEDS: ketorolac 30 mg/mL INJ 15 MG IVP ×2 (15:25→21:39)
--- NOTE | 2022-06-24 16:42 | ANE.PACU2 ---
Inpatient post-anesthesia follow up: Airway intact: Yes Vital signs: Temperature 98.3 F Pulse Rate 68 Respiratory Rate 17 Blood Pressure 118/77 Pulse Oximetry 95 Oxygen Delivery Me thod Nasal Cannula Oxygen Flow Rate 1.5 Fraction of Inspir ed Oxygen Hydration adequate: Yes Nausea and vomiting: Yes Pain level: 2 Mental status: Baseline
[2022-06-24] MEDS: budesonide 0.5 mg/2 mL Neb INHALATION (20:46)
[2022-06-25] MEDS: D5-NS 0.45% + KCL 20 mEq 20 MEQ/1,000 ML BAG 75 MEQ IV (03:56)
[2022-06-25] MEDS: cefTRIAXone 1,000 MG in sodium chloride 0.9% (plus) 50 ML 100 MG IV (03:57)
[2022-06-25] MEDS: ketorolac 30 mg/mL INJ 15 MG IVP ×2 (04:04→10:21)
[2022-06-25 04:25] VITALS: BP 139/81; PULSE 76; RESP 16; TEMP 36.9; O2SAT 94
--- NOTE | 2022-06-25 06:59 | P.DS_ITS ---
Discharge Providers Date of Admission: 06/23/22 04:04 Date of Discharge: June 25, 2022 Attending Provider at Admission: Alcides Vasquez MD Attending Provider at Discharge: Alcides Vasquez MD Diagnoses at Discharge Discharge Diagnosis (1) Left ureteral calculus: Status: Acute (2) Urolithiasis: Status: Acute Permanent problem details: Renal and ureteral calculi history (3) UTI (urinary tract infection): Status: Acute Reason for Visit Reason for Visit: Left proximal ureteral stone with UTI Brief History: Presented to the emergency department with left renal colic. She has had a history of partial staghorn calculus and additional stones in the past. Last year she underwent a left percutaneous nephrostolithotomy later in the year at [facility] by Dr. Noel. There were some residual stone fragments but markedly improved overall reduction in stone burden. On presentation in the ER on the day of admission she was found to have a large stone obstructing her left proximal ureter and some moderate-sized stones in the left lower pole and a moderate size stone in the interpolar area She did have evidence of UTI without sepsis. Was admitted for further evaluation and treatment. Hospital Course Hospital Course Proceed about 24 hours of IV antibiotics and then proceeded to surgery for endoscopic treatment of the obstructing left proximal ureteral stone. Attempt was made to try to clear the left lower pole stone burden but access via flexible ureterorenoscopy was not adequate to allow laser lithotripsy of the en tire stone burden. A stent was left indwelling. She was observed overnight on the day of her surgery and she did well with no concerning symptoms and was discharged on postop day #1 in stable condition. Plans will be to follow-up next week with a KUB. Decision will be made regarding treatment of residual renal calculi, stent management, and a longer term strategy related to recurrent UTIs. She is to strain her urine. Physical Exam Const: COMMON NORMALS: alert and well nourished GENERAL APPEARANCE: well kempt and well developed ORIENTATION/CONSCIOUSNESS: not confused Resp: COMMON NORMALS: normal respiratory effort EFFORT & INSPECTION: Yes able to speak in complete sentences, No labored and No Actively coughing Neuro: COMMON NORMALS: no focal motor deficits SENSORIUM/ORIENTATION: Yes alert Psych: COMMON NORMALS: mental status grossly normal APPEARANCE: Yes grossly normal and Yes well kempt ATTITUDE: Yes calm and Yes engaged Discharge Data Studies Completed and Pending Completed Studies During Hospitalization Category Date Time Status CT abdomen renal stone [CT kidney stone [id number]] Stat Cat Scan 06/23/22 01:17 Completed Pending at discharge Category Date Time Status Stone Analysis Routine Lab 06/24/22 12:27 Received Pathology: Surgical [PTH] Routine Pth 06/24/22 08:58 Received Radiology Impressions Abdomen/Pelvis CT 06/23/22 01:17 IMPRESSION: 1. Left UPJ 8 mm calculus on series 3, image 94 resulting in moderate left hydronephrosis. The left kidney appears mildly edematous and there is mild left perinephric fat stranding, can not exclude left pyelonephritis. Correlate and follow-up as clinically indicated. 2. Other bilateral nonobstructing renal calculi as described above. No right hydroureter or hydronephrosis. 3. Other chronic/incidental findings as described above. COMMENTS: Consistent with the [employer]'s Incidental Findings Committee white paper (J Am Kusum Radiol 2018): Any incidental renal lesion less than 1 cm or classified as too small to characterize, or any incidental cystic renal lesion characterized as simple-appearing, is likely benign. No follow-up imaging is recommended for these lesions per consensus recommendations based on imaging criteria. Laboratory Results WBC 9.6 10^3/uL (4.0-10.0) 06/23/22 01:20 RBC 4.75 10^6/uL (4.1-5.3) 06/23/22 01:20 Hgb 14.0 g/dL (11.5-15.3) 06/23/22 01:20 Hct 43.5 % (37.0-47.0) 06/23/22 01:20 MCV 91.6 fl (81-99) 06/23/22 01:20 MCH 29.5 pg (28.0-34.0) 06/23/22 01:20 MCHC 32.2 g/dL (30.0-36.0) 06/23/22 01:20 RDW 13.2 % (12.1-15.1) 06/23/22 01:20 Plt Count 259 10^3/cmm (130-400) 06/23/22 01:20 MPV 10.1 fL (7.4-10.4) 06/23/22 01:20 Neut % (Auto) 65.1 % 06/23/22 01:20 Lymph % (Auto) 19.6 % 06/23/22 01:20 [place] % (Auto) 6.6 % 06/23/22 01:20 Eos % (Auto) 7.6 % 06/23/22 01:20 Baso % (Auto) 0.9 % 06/23/22 01:20 Neut # (Auto) 6.26 10^3/uL (1.8-7.7) 06/23/22 01:20 Lymph # (Auto) 1.9 10^3/uL (0.8-4.8) 06/23/22 01:20 [place] # (Auto) 0.6 10^3/uL (0.2-0.9) 06/23/22 01:20 Eos # (Auto) 0.7 10^3/uL (0.0-0.8) 06/23/22 01:20 Baso # (Auto) 0.1 10^3/uL (0.0-0.1) 06/23/22 01:20 Nucleated RBC % (auto) 0 % 06/23/22 01:20 Nucleated RBCs # 0.0 /100WBC 06/23/22 01:20 Sodium 141 mmol/L (136-145) 06/23/22 01:20 Potassium 3.9 mmol/L (3.5-5.1) 06/23/22 01:20 Chloride 105 mmol/L (98-107) 06/23/22 01:20 Carbon Dioxide 25 mmol/L (22-29) 06/23/22 01:20 Anion Gap 14.9 (5-19) 06/23/22 01:20 BUN 12 mg/dL (6-20) 06/23/22 01:20 Creatinine 0.9 mg/dL (0.5-0.9) 06/23/22 01:20 GFR Calculation 64.1 mL/min (90-130) L 06/23/22 01:20 Glucose 125 mg/dL (65-115) H 06/23/22 01:20 Calculated Osmolality 293 mOsm/kg (285-295) 06/23/22 01:20 Calcium 11.0 mg/dL (8.5-10.5) H 06/23/22 01:20 Total Bilirubin 0.2 mg/dL (0.15-1.2) 06/23/22 01:20 AST 18 U/L (0-32) 06/23/22 01:20 ALT 15 U/L (0-33) 06/23/22 01:20 Alkaline Phosphatase 90 U/L (35-105) 06/23/22 01:20 Total Protein 7.1 g/dL (6.6-8.7) 06/23/22 01:20 Albumin 3.9 g/dL (3.5-5.2) 06/23/22 01:20 Globulin 3.2 g/dL (1.3-4.6) 06/23/22 01:20 Lipase 61 U/L (13-60) H 06/23/22 01:20 Urine Color Yellow (Yellow) 06/23/22 02:04 Urine Appearance Clear (CLEAR) 06/23/22 02:04 Urine pH 7 (5-7) 06/23/22 02:04 Ur Specific [place] 1.015 (1.005-1.030) 06/23/22 02:04 Urine Protein Trace (Negative) 06/23/22 02:04 Urine Glucose (UA) Norm (Normal) 06/23/22 02:04 Urine Ketones Negative (Negative) 06/23/22 02:04 Urine Blood 2+ (Negative) H 06/23/22 02:04 Urine Nitrate Positive (Negative) H 06/23/22 02:04 Urine Bilirubin Neg (Negative) 06/23/22 02:04 Urine Urobilinogen Norm mg/dL (Negative) 06/23/22 02:04 Ur Leukocyte Esterase Negative (Negative) 06/23/22 02:04 Urine RBC 0-4 /hpf (0-2) H 06/23/22 02:04 Urine WBC 0-4 /hpf (0-5) H 06/23/22 02:04 Ur Squamous Epith Cells 0-4 /hpf (0-5) H 06/23/22 02:04 Amorphous Sediment 1+ /hpf 06/23/22 02:04 Urine Bacteria Trace /hpf (NONE) 06/23/22 02:04 Vitals Last Vital Signs Temp 98.5 F 06/25/22 04:25 Pulse 76 06/25/22 04:25 Resp 16 06/25/22 04:25 BP 139/81 06/25/22 04:25 Pulse Ox 94 06/25/22 04:25 O2 Del Method 06/25/22 04:25 O2 Flow Rate 1.5 06/24/22 14:20 Discharge Plan Discharge Patient Disposition: Home Condition: Stable Prescriptions: New cefdinir 300 mg capsule 300 mg PO BID 10 Days Qty: 30 1RF Continued ketorolac 10 mg tablet 10 mg PO Q8H PRN (Reason: pain) Qty: 30 0RF zinc acetate 50 mg (zinc) Capsule 50 mg PO QAM Vitamin B-12 1,000 mcg Tablet 1,000 mcg PO QAM tramadol 50 mg Tablet 50 mg PO BEDTIME PRN (Reason: sleep/pain) Vitamin C 500 mg Tablet 500 mg PO QAM sertraline [Zoloft] 25 mg Tablet 12.5 mg PO BID EpiPen 2-Howard 0.3 mg/0.3 mL Auto-Injector 0.3 mg IM PRN PRN (Reason: Anaphylaxis) Flovent HFA 110 mcg/actuation Hfa Aerosol Inhaler 1 puff INHALATION DAILY PRN (Reason: unknown) Discharge Orders: Discharge Order (Routine); Ordered 06/25/22 Ordered By: Alcides Vasquez Referrals: Alcides Vasquez MD [Physician] - 1 week (KUB first) Discharge Diet: Advance as tolerated Discharge Activity: Increase activity as tolerated Patient Instructions: Opioid Safety, Pain Management Activity Restrictions/Additional Instructions: 1. You can expect to have urgency, frequency, blood in the urine, left flank pain with voiding related to the stent. 2. Pending clinical decisions: * How to treat the residual stones in the kidney * Focusing on long-term management of recurrent UTIs * Timing of stent removal. 3. We will follow up next week with a KUB. Discharge Attestations Time Spent in Discharge Care*: less than 30 min Quality Metrics Clinical Quality Measures [ No reported AMI, CVA or VTE this stay] Coding Level of Care Code Acute Code for Chg Fwd Diagnoses Left ureteral calculus N20.1 Urolithiasis N20.9 UTI (urinary tract infection) N39.0
[2022-06-25 08:00] VITALS: BP 137/86; PULSE 61; RESP 18; TEMP 36.8; O2SAT 97
[2022-06-25 08:35] VITALS: PULSE 60; RESP 18; O2SAT 96
[2022-06-25] MEDS: budesonide 0.5 mg/2 mL Neb INHALATION (08:35)
[2022-06-25 08:39] VITALS: PULSE 60
[2022-06-25] MEDS: sertraline 50 mg Tablet 12.5 MG PO (10:13)
[2022-06-25 12:00] VITALS: BP 155/83; PULSE 65; RESP 18; TEMP 36.4; O2SAT 96
[2022-06-25 13:01] VITALS: BP 155/83; PULSE 65; RESP 18; TEMP 36.4; O2SAT 96
[2022-06-30 04:06] LABS: Stone Source LT URETER
== END 2022-06-25 12:45 | disposition home or self-care (01) | DRG 660 ==
LOC: ER 03:28 → MEDSURG 04:04
PROVIDERS: Admitting Provider Urology; Emergency Provider Emergency Medicine; Visit Provider Urology
PROC: 0TJB8ZZ Inspection of Bladder, Via Natural or Artificial Opening Endoscopic (ICD-10-PCS; CPT 52000; principal; 2022-06-24 07:00)
PROC: 0T778DZ Dilation of Left Ureter with Intraluminal Device, Via Natural or Artificial Opening Endoscopic (ICD-10-PCS; CPT 74420; 2022-06-24 07:00)
PROC: 0TJ98ZZ Inspection of Ureter, Via Natural or Artificial Opening Endoscopic (ICD-10-PCS; CPT 52351; 2022-06-24 07:00)
PROC: 0T778DZ Dilation of Left Ureter with Intraluminal Device, Via Natural or Artificial Opening Endoscopic (ICD-10-PCS; 2022-06-24 07:00)
PROC: 0T778DZ Dilation of Left Ureter with Intraluminal Device, Via Natural or Artificial Opening Endoscopic (ICD-10-PCS; CPT 50605; 2022-06-24 07:00)
DX: N20.2 Calculus of kidney with calculus of ureter (principal); N39.0 Urinary tract infection, site not specified; Z79.891 Long term (current) use of opiate analgesic
CPT/HCPCS: 74018; 74176; 76000; 80053; 81001; 82365; 83690; 85025; 88300; 94640; 96365; 96375; 96376; 99285; J0696; J1170; J1200; J1885; J2270; J2405; J2704; J2710; J2765; J3010; J3490; J7030; J7626

== ENCOUNTER 2022-06-30 14:58 | Outpatient (CLI) | payer OTHER, SELFPAY ==
--- NOTE | 2022-06-30 15:05 | XR_ITS ---
WS: [id number] XR KUB [id number] REASON FOR EXAM: stones FINDINGS: Properly positioned left ureteral stent. Previously CT 06/23/2022. Demonstrated large obstructing calc ulus (presumed fragment of previous staghorn calculus) at the left ureteral pelvic junction no longer identifiable. There is a calcification adjacent to the distal aspect of the ureteral stent which may represent a small remnant stone fragment. Multiple calculi (presumed fragments of previous staghorn calculus) in the lower pole of the left kid mary jane congruent with the previous CT scan. XR/XR KUB [id number] IMPRESSION: Remnant calculi in the lower pole left kidney. Possible small remnant stone fragment adjacent to the distal left ureteral sten t.
== END 2022-06-30 14:59 | disposition home or self-care (01) ==
LOC: RAD 15:02
PROVIDERS: PCP Family Medicine; Visit Provider Urology
DX: N20.9 Urinary calculus, unspecified (principal); N39.0 Urinary tract infection, site not specified
CPT/HCPCS: 74018; 81003; 87086

== ENCOUNTER 2022-07-13 05:33 | Day surgery (SDC) | payer OTHER, SELFPAY ==
[2022-07-10 12:31] VITALS: BMI 30.7
[2022-07-13] VITALS (13 sets, daily range): BP systolic 128–161; BP diastolic 78–94; PULSE 60–83; RESP 16–18; TEMP 36.1–36.6; O2SAT 92–98
--- NOTE | 2022-07-13 05:42 | XR_ITS ---
WS: [id number] KUB, AP view, 07/13/2022 Clinical Data: Preop LEFT ESWL Comparison: KUB, 06/30/2022 Findings: No abnormal intraabdominal masses are seen. There is no dilatated small bowel or evidence of obstruct ion. The left ureteral stent remains in good position. There are multiple renal calculi overlying the infe rior pole of the left kidney. There are small calcifications adjacent to the distal left ureteral yg culus unchanged. There are clips in the right upper quadrant. XR/XR KUB [id number] Impression: 1. No change in left ureteral stent. 2. No change in inferior pole left renal calcifications and possible calcificat ions adjacent to distal left ureteral stent.
--- NOTE | 2022-07-13 06:25 | P.HPUD_ITS ---
Surgery/Procedure H&P Update DATE OF PROCEDURE: July 13, 2022 DATE H&P PERFORMED: 06/30/22 H&P UPDATE INFORMATION: I have reviewed H&P completed within last 30 days, I have examined patient prior to procedure, No changes to prior documentation and H&P is in [facility] EMR on date indicated PREOP DIAGNOSIS: Multiple left renal calculi PLANNED PROCEDURE: Operation Date: 07/13/22 07:00 Proposed Procedures p EXTRACORPOREAL SHOCKWAVE LITHOTRIPSY 54882, N20.9(Not Applicable) - Alcides Vasquez MD
[2022-07-13] MEDS: sodium chloride 0.9% 1,000 ML 30 ML IV (06:41)
--- NOTE | 2022-07-13 06:59 | P.OP_ITS ---
Operative Report Date of procedure: July 13, 2022 Pre-op diagnosis: Residual left renal calculi post percutaneous nephrostolithotomy Post-op diagnosis: Residual left renal calculi post percutaneous nephrostolithotomy Procedure done: 1. Left renal extracorporeal shockwave lithotripsy Implants: Already has indwelling left ureteral stent placed previously Specimens removed/disposition: None Pathology: None Surgeon: Pedro Sack Cleaner: Augie Li, lithotripsy Clock And Watch Hands Painter Estimated blood loss: None Urine output: Not measured Complications: None Findings: Anesthesia: General Condition: Stable Disposition: PACU Intraoperative findings: * Cluster of multiple stones in the left lower pole calyx easily identified and targeted with ESWL * 2500 shocks administered * Results: Excellent change of all stones treated. It appears that what remained was mostly sand and very very small pieces * She does have a mid polar calcification and on CT scan is in the parenchyma. It was not treated. It appears that it was in the path of the percutaneous nephrostomy tube site and not considered a stone that will create problems with obstruction in the future. Brief History: Mrs. Sanz is a delightful 57-year-old white female who had a large staghorn calculus treated with percutaneous nephrostolithotomy in [facility] in March 19. Presented recently to our emergency department with complaints of left renal colic and was found to have a fragment obstructing her left UPJ. It was treated with endoscopic laser lithotripsy with complete resolution. There was also a stone fragment in the midpole area that was treated with laser lithotripsy. Attempts at clearing the lower pole calyceal stones were only partially successful due to inability to navigate into that particular calyx. She is back now for attempt at completion of stone clearance with ESWL Procedure: After routine preoperative evaluation examination and obtaining of informed consent she was taken to the operating suite on 07/13/2022 where general anesthesia was administered without difficulty after appropriate timeout was performed, SCDs confirmed to be functioning, preoperative antibiotics administered, beta-mike protocol confirmed. Position on the Dornier unit in supine position pain careful attention to avoiding pressure points such that the stone was located at the focal point with shock head positioned posteriorly. Cluster of stones is easily identified. Therapy was initiated at a rate of 60 and intensity of 1 with slow advancement to an intensity of 4. After about 300 shocks a several minute pause was conducted. Total of 2500 shocks were administered. Intensity from 1-5. Rate from 60-90. She was placed in Trendelenburg position to help facilitate flow of the pieces out of the lower pole calyx At the completion of the procedure there was excellent change noted with all fragments completely changed with migration toward the renal pelvis out of the lower pole. She tolerated the procedure well without complication. She was awakened in the operating room and returned to the recovery room in stable condition. PLANS: 1. Anticipate discharge from outpatient surgery 2. Follow-up in 7 to 10 days for KUB and possible cystoscopy stent removal
[2022-07-13] MEDS: levofloxacin-dextrose 5 % 500 MG/100 ML PREMIX 100 MG IV (07:01)
--- NOTE | 2022-07-13 08:19 | P.ANESASSM_ITS ---
Pre-Anesthetic Assessment Height/Weight: Height 1.68 m Weight 86.183 kg Temp Pulse Resp BP Pulse Ox O2 Del Method O2 Flow Rate 97.3 F L 79 18 128/91 97 Room Air 6 07/13/22 06:33 07/13/22 06:33 07/13/22 06:33 07/13/22 06:33 07/13/22 06:33 07/13/22 06:42 07/13/22 08:09 Preop Diagnosis: Multiple left renal calculi Operation Date: 07/13/22 07:00 Proposed Procedures p EXTRACORPOREAL SHOCKWAVE LITHOTRIPSY 75311, N20.9(Not Applicable) - Alcides Vasquez MD Familial anesthetic complications: none Was Beta Roxana taken within 24 hours: N/A Was Clonidine taken within 24 hours: N/A Last intake: Intake Last Liquid Date 07/12/22 Last Liquid Time 17:00 Last Solid Date 07/12/22 Last Solid Time 17:00 Social No alcohol and No tobacco Exam alert, oriented x 3, clear to auscultation bilaterally and regular rate & rhythm Airway Submandibular: within normal limits Cervical ROM: within normal limits Mallampati: Class II Dentition: full Kidney stones Metabolic Morbid Obesity [facility] Osteoarthritis/DJD Neuropsych Anxiety and Depression Anesthetic Plan ASA status: 2 Anesthesia: General Medications/Allergies Home Medications Medication Instructions Recorded Confirmed Last Taken Type ketorolac 10 mg tablet 10 mg PO Q8H PRN pain #30 tabs 06/20/22 07/10/22 07/12/22 Rx ascorbic acid (vitamin C) 500 mg 500 mg PO QAM 06/23/22 07/10/22 07/12/22 History tablet (Vitamin C) cyanocobalamin (vitamin B-12) 1,000 mcg PO QAM 06/23/22 07/10/22 07/12/22 History 1,000 mcg tablet (Vitamin B-12) epinephrine 0.3 mg/0.3 mL 0.3 mg IM PRN PRN Anaphylaxis 06/23/22 07/10/22 Unkn own History injection, auto-injector (EpiPen 2-Howard) fluticasone propionate 110 1 puff inhalation DAILY PRN unknown 06/23/22 07/10/22 07/12/22 History mcg/actuation HFA aerosol inhaler (Flovent HFA) sertraline 25 mg tablet (Zoloft) 12.5 mg PO BID 06/23/22 07/10/22 07/12/22 History tramadol 50 mg tablet 50 mg PO BEDTIME PRN sleep/pain 06/23/22 07/10/22 07/10/22 History zinc acetate 50 mg (zinc) capsule 50 mg PO QAM 06/23/22 07/10/22 07/12/22 History cefdinir 300 mg capsule 300 mg PO BID 10 days #30 caps 06/25/22 07/10/22 07/12/22 Rx diphenhydramine-pseudoephed 19 2 tab PO BID PRN Allergy Symptoms 07/13/22 07/13/22 07/13/22 03:00 History mg-30 mg disintegrating tablet Allergies Allergy/AdvReac Type Severity Reaction Status Date / Time acetaminophen [From Percocet] Allergy Unknown Verified 07/10/22 12:28 albuterol Allergy Unknown Verified 07/10/22 12:28 cox Allergy Unknown Verified 07/10/22 12:28 codeine Allergy Unknown Verified 07/10/22 12:28 grass pollen Allergy Unconscious Verified 07/10/22 12:28 lidocaine Allergy ALGY-Anaphy Verified 07/10/22 12:28 laxis meperidine [From Demerol] Allergy Unknown Verified 07/10/22 12:28 oxycodone [From Percocet] Allergy Unknown Verified 07/10/22 12:28 Penicillins Allergy Unknown Verified 07/10/22 12:28 promethazine [From Phenergan] Allergy Unknown Verified 07/10/22 12:28 tree and shrub pollen Allergy Unknown Verified 06/30/22 16:07 Current Medications Generic Name Dose Route Start Last Admin Trade Name Freq PRN Reason Stop Dose Admin Sodium Chloride 1,000 mls @ 30 mls/hr 07/13/22 05:45 07/13/22 06:41 Sodium Chloride 0.9% IV 07/14/22 05:44 30 mls/hr .Q24H MIGUEL Administration PFSH Anesthesia Medical History Urolithiasis Renal and ureteral calculi history Surgical History History of bilateral breast reduction surgery History of cholecystectomy History of lithotripsy History of removal of calculus of renal pelvis through percutaneous nephrostomy History of ureter stent Family History Denies family history of Anesthesia complication Bleeding disorder Social History Smoking and tobacco status: never smoked Data Anesthesia Cardiac Studies: 2 No Data to Display
[2022-07-13] MEDS: ondansetron 2 mg/ML SDV 2 mL 4 MG IVP (08:21)
[2022-07-13] MEDS: ketorolac 10 mg Tablet PO (09:44)
--- NOTE | 2022-07-13 14:57 | ANE.PACU2 ---
Inpatient post-anesthesia follow up: Airway intact: Yes Vital signs: Temperature 97 F Pulse Rate 70 Respiratory Rate 18 Blood Pressure 143/79 Pulse Oximetry 96 Oxygen Delivery Me thod Room Air Oxygen Flow Rate 6 Fraction of Inspir ed Oxygen Hydration adequate: Yes Nausea and vomiting: No Pain level: 2 Mental status: Baseline
== END 2022-07-13 10:21 | disposition home or self-care (01) ==
PROVIDERS: PCP Family Medicine; Visit Provider Urology
PROC: (CPT 50590; principal; 2022-07-13 07:00)
DX: N20.0 Calculus of kidney (principal); Z87.442 Personal history of urinary calculi; Z87.891 Personal history of nicotine dependence; N39.0 Urinary tract infection, site not specified; E66.9 Obesity, unspecified; Z68.30 Body mass index [BMI] 30.0-30.9, adult; F41.9 Anxiety disorder, unspecified; F32.A Depression, unspecified; M19.90 Unspecified osteoarthritis, unspecified site
CPT/HCPCS: 50590; 74018; J0330; J1100; J1956; J2405; J2704; J2710; J3010; J3490; J7030

== ENCOUNTER 2022-07-20 12:28 | Outpatient (CLI) | payer OTHER, SELFPAY ==
--- NOTE | 2022-07-20 12:36 | XR_ITS ---
WS: [id number] Exam: XR KUB [id number] Date/Time of Exam: 07/20/2022 1:13 PM Reason For Exam: stones Comparison 07/13/2022. A left ureteral stent is in place remaining in satisfactory position. Numerous calcifications again s uperimposing the left kidney apparently representing renal stones. No bowel obstruction or free air. No sign of organ enlargement. Bony structures are intact. XR/XR KUB [id number] IMPRESSION: 1. Left-sided ureteral stent remaining in satisfactory location. 2. Numerous calcifications superimposing the left and right kidneys apparently representing known renal stones.
== END 2022-07-20 12:29 | disposition home or self-care (01) ==
LOC: RAD 12:32
PROVIDERS: PCP Family Medicine; Visit Provider Urology
DX: N20.0 Calculus of kidney (principal)
CPT/HCPCS: 74018; 82365; 88300

== ENCOUNTER 2023-11-26 09:35 | Emergency (ER) | payer OTHER, SELFPAY ==
--- NOTE | 2023-11-26 09:44 | XR_ITS ---
WS: [id number] Exam: XR hand RT min 3V* [id number] Date/Time of Exam: 11/26/2023 9:46 AM Reason For Exam: pain There is a fracture of the distal fifth metacarpal with moderate volar angulation of the distal fragm ent. There is associated soft tissue swelling. No other fractures. Minimal degenerative changes in th e IP joints. XR/XR hand RT min 3V* [id number] IMPRESSION: 1. Distal fifth metacarpal fracture with moderate volar angulation.
[2023-11-26 09:47] VITALS: BP 169/116; PULSE 84; RESP 18; TEMP 36.9; O2SAT 95; BMI 29.6
--- NOTE | 2023-11-26 09:54 | ED_ITS ---
HPI - Extremity Injury (Upper) General: Chief Complaint: Extremity Injury, Upper Stated Complaint: Right Hand injury Time Seen by Provider: 11/26/23 09:38 Source: patient Mode of arrival: ambulatory Limitations: no limitations History of Present Illness: Patient is a 58-year-old female presents to ED today for evaluation of a right hand injury that she sustained just prior to arrival after accidentally slipping and falling on her wet deck. No other injuries or complaints at this time. MD complaint: injury to: right and hand Onset (ago): hour(s) Other Extremity Injury: Right: hand Other injuries: none Place: home Severity: moderate Relieving factors: immobilization Exacerbating factors: movement of extremity Context: fall and direct blow Associated symptoms: Reports no associated symptoms Related Data Home Medications Medication Instructions Recorded Confirmed ascorbic acid (vitamin C) 500 mg 500 mg PO QAM 06/23/22 07/20/22 tablet (Vitamin C) cyanocobalamin (vitamin B-12) 1,000 mcg PO QAM 06/23/22 07/20/22 1,000 mcg tablet (Vitamin B-12) epinephrine 0.3 mg/0.3 mL 0.3 mg IM PRN PRN Anaphylaxis 06/23/22 07/20/22 injection, auto-injector (EpiPen 2-Howard) fluticasone propionate 110 1 puff inhalation DAILY PRN unknown 06/23/22 07/20/22 mcg/actuation HFA aerosol inhaler (Flovent HFA) sertraline 25 mg tablet (Zoloft) 12.5 mg PO BID 06/23/22 07/20/22 zinc acetate 50 mg (zinc) capsule 50 mg PO QAM 06/23/22 07/20/22 diphenhydramine-pseudoephed 19 2 tab PO BID PRN Allergy Symptoms 07/13/22 07/20/22 mg-30 mg disintegrating tablet Previous Rx's Medication Instructions Recorded cefdinir 300 mg capsule See Rx Instructions .Route 07/15/22 .COMPLEX #30 caps ketorolac 10 mg tablet 10 mg PO Q8H PRN pain #20 tabs 07/15/22 tramadol 50 mg tablet 50 mg PO Q6H PRN sleep/pain #20 07/15/22 tabs Allergies Allergy/AdvReac Type Severity Reaction Status Date / Time acetaminophen [From Percocet] Allergy Unknown Verified 07/20/22 13:23 albuterol Allergy Unknown Verified 07/20/22 13:23 cox Allergy Unknown Verified 07/20/22 13:23 codeine Allergy Unknown Verified 07/20/22 13:23 grass pollen Allergy Unconscious Verified 07/20/22 13:23 lidocaine Allergy ALGY-Anaphy Verified 07/20/22 13:23 laxis meperidine [From Demerol] Allergy Unknown Verified 07/20/22 13:23 oxycodone [From Percocet] Allergy Unknown Verified 07/20/22 13:23 Penicillins Allergy Unknown Verified 07/20/22 13:23 promethazine [From Phenergan] Allergy Unknown Verified 07/20/22 13:23 tree and shrub pollen Allergy Unknown Verified 07/20/22 13:23 Review of Systems Musc: Reports: extremity pain (R hand) and extremity swelling (R hand) Neuro: Denies: numbness in extremities or sensory changes PFSH ED PFSH: Medical History Urolithiasis Renal and ureteral calculi history Surgical History History of removal of calculus of renal pelvis through percutaneous nephrostomy History of bilateral breast reduction surgery History of cholecystectomy History of ureter stent History of lithotripsy Family History Denies family history of Anesthesia complication Bleeding disorder Social History Smoking and tobacco/nicotine status: never used tobacco/nicotine Substance/Drug Use: never Marital status: Physical Exam Const: COMMON NORMALS: no acute distress, average body habitus, no limitations, healthy appearing, alert and well nourished Extremity: GENERAL: Yes normal exam except as noted RIGHT UPPER EXTREMITY: Yes hand & digits (TTP/edema overlying 5th metacarpal) Right hand and digits: Yes neurovascular exam (normal) Neuro: COMMON NORMALS: moves all extremities, no focal motor deficits and no sensory deficits noted SENSORIUM/ORIENTATION: Yes alert Course Vital Signs: Vital signs: Vital Signs Temperature 98.4 F 11/26/23 09:47 Pulse Rate 84 11/26/23 09:47 Respiratory Rate 18 11/26/23 09:47 Blood Pressure 169/116 11/26/23 09:47 Pulse Oximetry 95 11/26/23 09:47 Oxygen Delivery Me thod Room Air 11/26/23 09:47 MDM - Extremity Injury (Upper) Medical Decision Making XR showing 5th metacarpal fracture. She will be placed in an ulnar gutter splint and will have her follow-up with orthopedics. Lab Data Radiology Impressions Hand X-Ray 11/26/23 09:44 IMPRESSION: 1. Distal fifth metacarpal fracture with moderate volar angulation. All radiology interpretation(s) finalized by discharge Discharge Plan Discharge Patient Disposition: Home Clinical Impression: Closed fracture of fifth metacarpal bone Qualifiers: Encounter type: initial encounter Metacarpal location: neck Fracture alignment: nondisplaced Laterality: right Qualified Code(s): S62.366A - Nondisplaced fracture of neck of fifth metacarpal bone, right hand, initial encounter for closed fracture Condition: Stable Prescriptions: No Action tramadol 50 mg tablet 50 mg PO Q6H PRN (Reason: sleep/pain) Qty: 20 1RF ketorolac 10 mg tablet 10 mg PO Q8H PRN (Reason: pain) Qty: 20 0RF cefdinir 300 mg capsule See Rx Instructions .ROUTE .COMPLEX Qty: 30 2RF Dose Instruction: TAKE ONE CAPSULE BY MOUTH TWICE DAILY FOR 15 DAYS Rx Instructions: TAKE ONE CAPSULE BY MOUTH TWICE DAILY FOR 15 DAYS zinc acetate 50 mg (zinc) Capsule 50 mg PO QAM cyanocobalamin (vitamin B-12) [Vitamin B-12] 1,000 mcg Tablet 1,000 mcg PO QAM ascorbic acid (vitamin C) [Vitamin C] 500 mg Tablet 500 mg PO QAM sertraline [Zoloft] 25 mg Tablet 12.5 mg PO BID epinephrine [EpiPen 2-Howard] 0.3 mg/0.3 mL Auto-Injector 0.3 mg IM PRN PRN (Reason: Anaphylaxis) fluticasone propionate [Flovent HFA] 110 mcg/actuation Hfa Aerosol Inhaler 1 puff INHALATION DAILY PRN (Reason: unknown) diphenhydramine-pseudoephed 19-30 mg Tablet,Disintegrating 2 tab PO BID PRN (Reason: Allergy Symptoms) Discharge Orders: Discharge ED (Routine); Ordered 11/26/23 Ordered By: Darby Song Referrals: Leeann Lyman MD [Primary Care Provider] - Patient Instructions: Hand Fracture (DC), Boxer Fracture (ED) Activity Restrictions/Additional Instructions: As we discussed you need to stay in your splint at all times. Case management should reach out to you shortly to help set you up with your follow-up orthopedic appointment. Coding Level of Care Code ED [employer] for Perla Bishop
[2023-11-26 10:49] VITALS: PULSE 81; RESP 18; O2SAT 99
--- NOTE | 2023-11-29 07:51 | DCPLANNER ---
messaged ortho for er f/u
== END 2023-11-26 10:50 | disposition home or self-care (01) ==
PROVIDERS: Emergency Provider Physician Assistant; PCP Nurse Practitioner Family; Visit Provider Nurse Practitioner Family
DX: S62.366A Nondisplaced fracture of neck of fifth metacarpal bone, right hand, initial encounter for closed fracture (principal); W01.0XXA Fall on same level from slipping, tripping and stumbling without subsequent striking against object, initial encounter
CPT/HCPCS: 73130; 99283

== ENCOUNTER 2024-02-17 06:29 | Emergency (ER) | payer OTHER, SELFPAY ==
[2024-02-17 06:31] VITALS: BP 151/102; PULSE 82; RESP 18; TEMP 36.3; O2SAT 96; BMI 32.1
--- NOTE | 2024-02-17 06:32 | ED_ITS ---
HPI - Allergic Reaction General: Chief complaint: Allergic Reaction Stated complaint: Allergic reaction Time Seen by Provider: 02/17/24 06:30 Source: patient and EMS Mode of arrival: EMS Limitations: no limitations History of Present Illness: HPI narrative: 58-year-old female states she has had a history of allergic reactions in the past states she woke up this morning feeling itchy nose she had some hives she taken a Benadryl gave herself a dose of her EpiPen. States this happened around 4:00 she states she is feeling much improved no longer has a rash had some mild dyspnea earlier that has resolved Associated symptoms: Deny abdominal pain, nausea or vomiting Related Data Home Medications Medication Instructions Recorded Confirmed ascorbic acid (vitamin C) 500 mg 500 mg PO QAM 06/23/22 07/20/22 tablet (Vitamin C) cyanocobalamin (vitamin B-12) 1,000 mcg PO QAM 06/23/22 07/20/22 1,000 mcg tablet (Vitamin B-12) fluticasone propionate 110 1 puff inhalation DAILY PRN unknown 06/23/22 07/20/22 mcg/actuation HFA aerosol inhaler (Flovent HFA) sertraline 25 mg tablet (Zoloft) 12.5 mg PO BID 06/23/22 07/20/22 zinc acetate 50 mg (zinc) capsule 50 mg PO QAM 06/23/22 07/20/22 diphenhydramine-pseudoephed 19 2 tab PO BID PRN Allergy Symptoms 07/13/22 07/20/22 mg-30 mg disintegrating tablet Previous Rx's Medication Instructions Recorded cefdinir 300 mg capsule See Rx Instructions .Route 07/15/22 .COMPLEX #30 caps ketorolac 10 mg tablet 10 mg PO Q8H PRN pain #20 tabs 07/15/22 tramadol 50 mg tablet 50 mg PO Q6H PRN sleep/pain #20 07/15/22 tabs epinephrine 0.3 mg/0.3 mL 0.3 mg (0.3 mL) IM PRN PRN 02/17/24 injection, auto-injector (EpiPen Anaphylaxis #2 ea 2-Howard) Allergies Allergy/AdvReac Type Severity Reaction Status Date / Time albuterol Allergy Unknown Verified 02/17/24 06:33 cox Allergy Unknown Verified 02/17/24 06:33 codeine Allergy Unknown Verified 02/17/24 06:33 grass pollen Allergy Unconscious Verified 02/17/24 06:33 lidocaine Allergy ALGY-Anaphy Verified 02/17/24 06:33 laxis meperidine [From Demerol] Allergy Unknown Verified 02/17/24 06:33 oxycodone [From Percocet] Allergy Unknown Verified 02/17/24 06:33 Penicillins Allergy Unknown Verified 02/17/24 06:33 promethazine [From Phenergan] Allergy Unknown Verified 02/17/24 06:33 tree and shrub pollen Allergy Unknown Verified 02/17/24 06:33 Review of Systems Const: Denies: fever(s), chills, body aches or change in appetite ENMT: Denies: throat pain or dental pain Card: Denies: chest pain Resp: Reports: dyspnea GI: Denies: abdominal pain, nausea, vomiting or diarrhea Musc: Denies: neck pain or back pain Skin/Breast: Reports: rash and pruritus Neuro: Denies: headache(s) PFSH ED PFSH: Medical History Urolithiasis Renal and ureteral calculi history Surgical History History of removal of calculus of renal pelvis through percutaneous nephrostomy History of bilateral breast reduction surgery History of cholecystectomy History of ureter stent History of lithotripsy Family History Denies family history of Anesthesia complication Bleeding disorder Social History Smoking and tobacco/nicotine status: never used tobacco/nicotine Substance/Drug Use: never Marital status: Physical Exam Const: COMMON NORMALS: no acute distress, patient oriented x3 and healthy appearing HENMT: COMMON NORMALS: normocephalic and atraumatic HEAD & SCALP: normocephalic and atraumatic Eye: COMMON NORMALS: conjunctivae normal CONJUNCTIVA: Yes conjunctivae normal Neck/C-Spine: COMMON NORMALS: full ROM and supple Chest: COMMONS NORMALS: normal inspection of the chest Resp: COMMON NORMALS: normal respiratory effort, No retractions, No use of accessory muscles and clear to auscultation bilaterally AUSCULTATION: clear to auscultation bilaterally Cardio: COMMON NORMALS: regular rate, regular rhythm and No murmurs present (Cardio) RATE: regular rate RHYTHM: regular rhythm Extremity: COMMON NORMALS: normal to inspection and full ROM Neuro: COMMON NORMALS: patient oriented x3, moves all extremities and no focal motor deficits Psych: COMMON NORMALS: mental status grossly normal, Normal thought process present and cooperative THOUGHT PROCESS: Normal thought process present Skin: COMMON NORMALS: no rashes or lesions noted and no wounds GENERAL SKIN EXAM: no rashes or lesions noted Course Vital Signs: Vital signs: Vital Signs Temperature 97.4 F L 02/17/24 06:31 Pulse Rate 79 02/17/24 07:02 Respiratory Rate 21 H 02/17/24 06:47 Blood Pressure 134/86 02/17/24 07:02 Pulse Oximetry 94 02/17/24 07:02 Oxygen Delivery Me thod Room Air 02/17/24 07:02 MDM - Allergic Reaction Medical Decision Making Patient presents with allergic reaction she gave herself epi at home she has been well-appearing here in no distress she stable for discharge she is follow- up with PCP return if worsening. Medical Records I reviewed the patient's medical records. No radiology studies performed this visit Discharge Plan Discharge Patient Disposition: Home Clinical Impression: Allergic reaction Condition: Stable Prescriptions: Continued epinephrine [EpiPen 2-Howard] 0.3 mg/0.3 mL Auto-Injector 0.3 mg IM PRN PRN (Reason: Anaphylaxis) Qty: 2 2RF No Action tramadol 50 mg tablet 50 mg PO Q6H PRN (Reason: sleep/pain) Qty: 20 1RF ketorolac 10 mg tablet 10 mg PO Q8H PRN (Reason: pain) Qty: 20 0RF cefdinir 300 mg capsule See Rx Instructions .ROUTE .COMPLEX Qty: 30 2RF Dose Instruction: TAKE ONE CAPSULE BY MOUTH TWICE DAILY FOR 15 DAYS Rx Instructions: TAKE ONE CAPSULE BY MOUTH TWICE DAILY FOR 15 DAYS zinc acetate 50 mg (zinc) Capsule 50 mg PO QAM cyanocobalamin (vitamin B-12) [Vitamin B-12] 1,000 mcg Tablet 1,000 mcg PO QAM ascorbic acid (vitamin C) [Vitamin C] 500 mg Tablet 500 mg PO QAM sertraline [Zoloft] 25 mg Tablet 12.5 mg PO BID fluticasone propionate [Flovent HFA] 110 mcg/actuation Hfa Aerosol Inhaler 1 puff INHALATION DAILY PRN (Reason: unknown) diphenhydramine-pseudoephed 19-30 mg Tablet,Disintegrating 2 tab PO BID PRN (Reason: Allergy Symptoms) Discharge Orders: Discharge ED (Routine); Ordered 02/17/24 Ordered By: Burke Lau Referrals: Ale Spears FNP [Primary Care Provider] - 4-7 days Discharge Diet: Advance as tolerated Discharge Activity: Resume usual activity Patient Instructions: General Allergic Reaction (ED) Coding Level of Care Code ED [employer] for Perla Bishop
[2024-02-17] MEDS: famotidine 20 mg/2 mL INJ 40 MG IVP (06:36)
[2024-02-17 06:47] VITALS: BP 134/86; PULSE 79; RESP 21; O2SAT 78
[2024-02-17] MEDS: LORazepam 2 mg/mL INJ 1 mL 0.5 MG IVP (06:51)
[2024-02-17 07:02] VITALS: BP 134/86; PULSE 79; O2SAT 94
[2024-02-17 07:51] VITALS: BP 131/79; PULSE 81; O2SAT 95
== END 2024-02-17 07:52 | disposition home or self-care (01) ==
PROVIDERS: Emergency Provider Emergency Medicine; PCP Nurse Practitioner Family
DX: T78.40XA Allergy, unspecified, initial encounter (principal); X58.XXXA Exposure to other specified factors, initial encounter
CPT/HCPCS: 96374; 96375; 99284; J2060; J3490

== ENCOUNTER 2024-04-10 16:01 | Emergency (ER) | payer OTHER, SELFPAY ==
[2024-04-10] VITALS (8 sets, daily range): BP systolic 118–167; BP diastolic 82–96; PULSE 70–89; TEMP 36.6; O2SAT 92–99; BMI 31.9
[2024-04-10 17:17] LABS: Basophils # 0.1 10^3/uL (0.0-0.1); Eosinophils # 0.3 10^3/uL (0.0-0.8); Eosinophils % 3.8 %; Hematocrit 43.1 % (36-47); Lymphocytes # 1.9 10^3/uL (0.8-4.8); Lymphocytes % 23.2 %; Mean Corpuscular Hemoglobin 29.9 pg (27-33); Mean Corpuscular Volume 93.5 fl (85-98); Mean Platelet Volume 10.1 fL (7.4-10.4); Monocytes # 0.6 10^3/uL (0.2-0.9); Monocytes % 6.9 %; Neutrophils # 5.25 10^3/uL (1.8-7.7); Neutrophils % 64.9 %; Nucleated Red Blood Cells % 0 %; Platelet Count 254 10^3/cmm (157-399); Red Blood Count 4.61 10^6/uL (3.85-5.65); Red Cell Distribution Width 13.2 % (12.1-15.1)
[2024-04-10 17:32] LABS: Alanine Aminotransferase 16 U/L (0-33); Alkaline Phosphatase 92 U/L (35-105); Aspartate Amino Transferase 18 U/L (0-32); Blood Urea Nitrogen 13 mg/dL (8-23); Calcium 11.1 mg/dL (8.5-10.5); Carbon Dioxide 28 mmol/L (22-29); Chloride 109 mmol/L (98-107); Creatinine Clr Calc Pharmacy 96.4742; Globulin 2.9 g/dL (1.3-4.6); Glomerular Filtration Rate 85.4 mL/min (90-130); Glucose 94 mg/dL (65-115); Lipase 24 U/L (13-60); Osmolality Calculated 298 mOsm/kg (285-295); Sodium 144 mmol/L (136-145); Total Bilirubin 0.3 mg/dL (0.15-1.2); Total Protein 6.9 g/dL (6.6-8.7)
[2024-04-10 19:35] LABS: Bilirubin Urine Negative (Negative); Blood Urine Negative (Negative); Glucose Urine UA Negative (Normal); Ketones Urine Negative (Negative); Leukocyte Esterase Urine Trace (Negative); Nitrate Urine Negative (Negative); Protein Urine Negative (Negative); Specific Gravity, Urine 1.006 (1.005-1.030); Urine Appearance Clear (CLEAR); Urine Color Yellow (Yellow); Urobilinogen Urine 0.2 mg/dL (Negative); pH Urine 5.5 (5-7)
--- NOTE | 2024-04-10 19:39 | CTR_ITS ---
PROCEDURE INFORMATION: Exam: CT Abdomen And Pelvis Without Contrast Exam date and time: 04/10/2024 8:06 PM Age: 58 years old Clinical indication: Other: RT flank pain; Prior surgery; Surgery date: 6+ months; Surgery type: Kidney stone removal; Additional info: Right flank, nvd, pain history of stones TECHNIQUE: Imaging protocol: Computed tomography of the abdomen and pelvis without contrast. Radiation optimization: All CT scans at this facility use at least one of these dose optimization techniques: automated exposure control; mA and/or kV adjustment per patient size (includes targeted exams where dose is matched to clinical indication); or iterative reconstruction. COMPARISON: CT kidney stone [id number] 06/23/2022 1:43 AM RADIATION DOSE METRICS: Total DLP (mGy-cm): 1050.25 FINDINGS: Lungs: The visualized portions of the lungs are unremarkable. Liver: The liver is unremarkable. Gallbladder and biliary ducts: There has been a cholecystectomy. No biliary ductal dilatation. Pancreas: The pancreas is unremarkable. Spleen: The spleen is unremarkable. Adrenal glands: Normal. No mass. Kidneys and ureters: Bilateral nonobstructive renal stones measuring up to 2 mm on the right and 4 mm on the left. No hydronephrosis. Stomach and bowel: There is no bowel wall thickening. No bowel obstruction. Appendix: A normal appendix is identified. Intraperitoneal space: No significant peritoneal free fluid. No free peritoneal air. Vasculature: The vasculature demonstrates minimal atherosclerotic calcification. No aneurysm. Lymph nodes: No enlarged lymph nodes by size criteria. Urinary bladder: The bladder is unremarkable. Reproductive: Uterus is unremarkable. No suspicious adnexal lesion seen. Bones/joints: The spine demonstrates moderate degenerative changes at multiple levels. Soft tissues: Soft tissues are unremarkable as visualized. CT/CT kidney stone [id number] IMPRESSION: 1. Bilateral nonobstructive nephrolithiasis. No hydronephrosis. 2. Otherwise, no acute findings.
[2024-04-10 19:41] LABS: Add Urine Microscopic? YES; Bacteria Urine None Seen /hpf; Hyaline Casts Urine 1.65 /lpf; RBC Urine 0-2 /hpf (0-2); Squamous Epithelial Cell Urine 0-5 /hpf (0-5); WBC Urine 0-5 /hpf (0-5)
--- NOTE | 2024-04-10 20:26 | ED_ITS ---
HPI - Abdominal Pain 2 General: Chief Complaint: Abdominal Pain Stated Complaint: abd pain and back pain Time Seen by Provider: 04/10/24 19:35 History of Present Illness: Patient reports to the ER with a right upper quadrant/right flank pain along with nausea vomiting diarrhea for the last several days. Patient says the pain is a 6 out of 10 sharp stabbing at this time. Patient did not declines any pain or nausea medicine. Patient does have a history of kidney stones and says it felt like this her last time. Related Data Home Medications Medication Instructions Recorded Confirmed ascorbic acid (vitamin C) 500 mg 500 mg PO QAM 06/23/22 07/20/22 tablet (Vitamin C) cyanocobalamin (vitamin B-12) 1,000 mcg PO QAM 06/23/22 07/20/22 1,000 mcg tablet (Vitamin B-12) fluticasone propionate 110 1 puff inhalation DAILY PRN unknown 06/23/22 07/20/22 mcg/actuation HFA aerosol inhaler (Flovent HFA) sertraline 25 mg tablet (Zoloft) 12.5 mg PO BID 06/23/22 07/20/22 zinc acetate 50 mg (zinc) capsule 50 mg PO QAM 06/23/22 07/20/22 diphenhydramine-pseudoephed 19 2 tab PO BID PRN Allergy Symptoms 07/13/22 07/20/22 mg-30 mg disintegrating tablet Previous Rx's Medication Instructions Recorded cefdinir 300 mg capsule See Rx Instructions .Route 07/15/22 .COMPLEX #30 caps ketorolac 10 mg tablet 10 mg PO Q8H PRN pain #20 tabs 07/15/22 tramadol 50 mg tablet 50 mg PO Q6H PRN sleep/pain #20 07/15/22 tabs epinephrine 0.3 mg/0.3 mL 0.3 mg (0.3 mL) IM PRN PRN 02/17/24 injection, auto-injector (EpiPen Anaphylaxis #2 ea 2-Howard) ketorolac 10 mg tablet 10 mg PO Q6H PRN Kidney stone pain 04/10/24 #14 tabs ondansetron HCl 4 mg tablet 4 mg PO Q8H PRN nausea and 04/10/24 vomiting #14 tabs Allergies Allergy/AdvReac Type Severity Reaction Status Date / Time albuterol Allergy Unknown Verified 04/10/24 16:09 cox Allergy Unknown Verified 04/10/24 16:09 codeine Allergy Unknown Verified 04/10/24 16:09 grass pollen Allergy Unconscious Verified 04/10/24 16:09 lidocaine Allergy ALGY-Anaphy Verified 04/10/24 16:09 laxis meperidine [From Demerol] Allergy Unknown Verified 04/10/24 16:09 oxycodone [From Percocet] Allergy Unknown Verified 04/10/24 16:09 Penicillins Allergy Unknown Verified 04/10/24 16:09 promethazine [From Phenergan] Allergy Unknown Verified 04/10/24 16:09 tree and shrub pollen Allergy Unknown Verified 04/10/24 16:09 Review of Systems 2 General: Reports: 10 or more systems reviewed and unremarkable except in HPI and below PFSH ED 2 PFSH: Medical History Urolithiasis Renal and ureteral calculi history Surgical History History of removal of calculus of renal pelvis through percutaneous nephrostomy History of bilateral breast reduction surgery History of cholecystectomy History of ureter stent History of lithotripsy Family History Denies family history of Anesthesia complication Bleeding disorder Social History Smoking and tobacco/nicotine status: never used tobacco/nicotine Substance/Drug Use: never Marital status: Physical Exam 2 Const: COMMON NORMALS: no acute distress, average body habitus, patient oriented x3, no limitations, healthy appearing, alert and well nourished HENMT: COMMON NORMALS: normocephalic, atraumatic, hearing grossly normal bilaterally, external ears normal, Normal external nose present and moist oral mucous membranes HEAD & SCALP: normocephalic and atraumatic NOSE: Normal external nose present EXTERNAL EAR: Yes external ears normal Neck/C-Spine: COMMON NORMALS: no JVD Chest: COMMONS NORMALS: normal inspection of the chest and normal palpation of entire chest wall Resp: COMMON NORMALS: normal respiratory effort, No retractions, No use of accessory muscles and clear to auscultation bilaterally AUSCULTATION: clear to auscultation bilaterally Cardio: COMMON NORMALS: no JVD, regular rate, regular rhythm, S1 normal heart sound present, S2 normal heart sound present, No gallops present (Cardio), No clicks present (Cardio), No murmurs present (Cardio) and No rub (Cardio) R ATE: regular rate RHYTHM: regular rhythm HEART SOUNDS: S1 normal heart sound present and S2 normal heart sound present GI: COMMON NORMALS: Normal to inspection, nondistended, normoactive bowel sounds present, Soft to palpation, non-tender, No hepatosplenomegaly present and no masses PALPATION: Yes Soft to palpation and Yes No hepatosplenomegaly present Neuro: COMMON NORMALS: patient oriented x3 SENSORIUM/ORIENTATION: Yes alert Course 2 Vital Signs: Vital signs: Vital Signs Temperature 97.8 F 04/10/24 16:05 Pulse Rate 71 04/10/24 21:30 Blood Pressure 118/88 04/10/24 21:30 Pulse Oximetry 99 04/10/24 21:30 Oxygen Delivery Me thod Room Air 04/10/24 21:30 MDM - Abdominal Pain Medical Decision Making Lab work was reviewed as well as abdominal pelvis CT scan showed bilateral nonobstructing kidney stones. These results were discussed with the patient. Patient be given Zofran and discharged and told to follow-up with her urologist. Medical Records I reviewed the patient's medical records. Lab Data I reviewed the patient's lab results. 04/10/24 17:06 04/10/24 17:06 Labs/Radiology: Radiology Impressions Abdomen/Pelvis CT 04/10/24 19:39 IMPRESSION: 1. Bilateral nonobstructive nephrolithiasis. No hydronephrosis. 2. Otherwise, no acute findings. Laboratory Results WBC 8.10 10^3/uL (3.29-11.43) 04/10/24 17:06 RBC 4.61 10^6/uL (3.85-5.65) 04/10/24 17:06 Hgb 13.80 g/dL (11.27-16.99) 04/10/24 17:06 Hct 43.1 % (36-47) 04/10/24 17:06 MCV 93.5 fl (85-98) 04/10/24 17:06 MCH 29.9 pg (27-33) 04/10/24 17:06 MCHC 32.0 g/dL (30-55) 04/10/24 17:06 RDW 13.2 % (12.1-15.1) 04/10/24 17:06 Plt Count 254 10^3/cmm (157-399) 04/10/24 17:06 MPV 10.1 fL (7.4-10.4) 04/10/24 17:06 Neut % (Auto) 64.9 % 04/10/24 17:06 Lymph % (Auto) 23.2 % 04/10/24 17:06 [place]key % (Auto) 6.9 % 04/10/24 17:06 Eos % (Auto) 3.8 % 04/10/24 17:06 Baso % (Auto) 1.0 % 04/10/24 17:06 Neut # (Auto) 5.25 10^3/uL (1.8-7.7) 04/10/24 17:06 Lymph # (Auto) 1.9 10^3/uL (0.8-4.8) 04/10/24 17:06 [place]key # (Auto) 0.6 10^3/uL (0.2-0.9) 04/10/24 17:06 Eos # (Auto) 0.3 10^3/uL (0.0-0.8) 04/10/24 17:06 Baso # (Auto) 0.1 10^3/uL (0.0-0.1) 04/10/24 17:06 Nucleated RBC % (auto) 0 % 04/10/24 17:06 Nucleated RBCs # 0.0 /100WBC 04/10/24 17:06 Sodium 144 mmol/L (136-145) 04/10/24 17:06 Potassium 4.0 mmol/L (3.5-5.1) 04/10/24 17:06 Chloride 109 mmol/L (98-107) H 04/10/24 17:06 Carbon Dioxide 28 mmol/L (22-29) 04/10/24 17:06 Anion Gap 11.0 (5-19) 04/10/24 17:06 BUN 13 mg/dL (8-23) 04/10/24 17:06 Creatinine 0.7 mg/dL (0.5-0.9) 04/10/24 17:06 GFR Calculation 85.4 mL/min (90-130) L 04/10/24 17:06 Glucose 94 mg/dL (65-115) 04/10/24 17:06 Calculated Osmolality 298 mOsm/kg (285-295) H 04/10/24 17:06 Calcium 11.1 mg/dL (8.5-10.5) H 04/10/24 17:06 Total Bilirubin 0.3 mg/dL (0.15-1.2) 04/10/24 17:06 AST 18 U/L (0-32) 04/10/24 17:06 ALT 16 U/L (0-33) 04/10/24 17:06 Alkaline Phosphatase 92 U/L (35-105) 04/10/24 17:06 Total Protein 6.9 g/dL (6.6-8.7) 04/10/24 17:06 Albumin 4.0 g/dL (3.5-5.2) 04/10/24 17:06 Globulin 2.9 g/dL (1.3-4.6) 04/10/24 17:06 Lipase 24 U/L (13-60) 04/10/24 17:06 Urine Color Yellow (Yellow) 04/10/24 17:03 Urine Appearance Clear (CLEAR) 04/10/24 17:03 Urine pH 5.5 (5-7) 04/10/24 17:03 Ur Specific [place] 1.006 (1.005-1.030) 04/10/24 17:03 Urine Protein Negative (Negative) 04/10/24 17:03 Urine Glucose (UA) Negative (Normal) 04/10/24 17:03 Urine Ketones Negative (Negative) 04/10/24 17:03 Urine Blood Negative (Negative) 04/10/24 17:03 Urine Nitrate Negative (Negative) 04/10/24 17:03 Urine Bilirubin Negative (Negative) 04/10/24 17:03 Urine Urobilinogen 0.2 mg/dL (Negative) 04/10/24 17:03 Ur Leukocyte Esterase Trace (Negative) A 04/10/24 17:03 Urine RBC 0-2 /hpf (0-2) 04/10/24 17:03 Urine WBC 0-5 /hpf (0-5) 04/10/24 17:03 Ur Squamous Epith Cells 0-5 /hpf (0-5) 04/10/24 17:03 Amorphous Sediment Not Reportable 04/10/24 17:03 Urine Bacteria None seen /hpf (NONE) 04/10/24 17:03 Hyaline Casts 1.65 /lpf 04/10/24 17:03 All radiology interpretation(s) finalized by discharge Discharge Plan Discharge Patient Disposition: Home Clinical Impression: Calculus of kidney Condition: Stable Prescriptions: New ondansetron HCl 4 mg tablet 4 mg PO Q8H PRN (Reason: nausea and vomiting) Qty: 14 0RF ketorolac 10 mg tablet 10 mg PO Q6H PRN (Reason: Kidney stone pain) Qty: 14 0RF No Action tramadol 50 mg tablet 50 mg PO Q6H PRN (Reason: sleep/pain) Qty: 20 1RF ketorolac 10 mg tablet 10 mg PO Q8H PRN (Reason: pain) Qty: 20 0RF cefdinir 300 mg capsule See Rx Instructions .ROUTE .COMPLEX Qty: 30 2RF Dose Instruction: TAKE ONE CAPSULE BY MOUTH TWICE DAILY FOR 15 DAYS Rx Instructions: TAKE ONE CAPSULE BY MOUTH TWICE DAILY FOR 15 DAYS zinc acetate 50 mg (zinc) Capsule 50 mg PO QAM cyanocobalamin (vitamin B-12) [Vitamin B-12] 1,000 mcg Tablet 1,000 mcg PO QAM ascorbic acid (vitamin C) [Vitamin C] 500 mg Tablet 500 mg PO QAM sertraline [Zoloft] 25 mg Tablet 12.5 mg PO BID fluticasone propionate [Flovent HFA] 110 mcg/actuation Hfa Aerosol Inhaler 1 puff INHALATION DAILY PRN (Reason: unknown) diphenhydramine-pseudoephed 19-30 mg Tablet,Disintegrating 2 tab PO BID PRN (Reason: Allergy Symptoms) epinephrine [EpiPen 2-Howard] 0.3 mg/0.3 mL Auto-Injector 0.3 mg IM PRN PRN (Reason: Anaphylaxis) Qty: 2 2RF Discharge Orders: Discharge ED (Routine); Ordered 04/10/24 Ordered By: Tong Sol Referrals: Ale Spears FNP [Primary Care Provider] - 1 week Patient Instructions: Kidney Stones (ED) Activity Restrictions/Additional Instructions: Your evaluation ER showed you have multiple kidney stones in the neighborhood of 2 to 4 mm in diameter on both sides. You have been prescribed Zofran for nausea. Please take it as directed. Please follow-up with your urologist for further evaluation treatment. Coding Level of Care Code ED Website Project Manager for Perla Bishop
[2024-04-10] MEDS: ondansetron 4 MG Tablet PO (21:52)
== END 2024-04-10 21:48 | disposition home or self-care (01) ==
PROVIDERS: Emergency Medicine; Emergency Provider Emergency Medicine; PCP Nurse Practitioner Family
DX: N20.0 Calculus of kidney (principal)
CPT/HCPCS: 36415; 74176; 80053; 81001; 83690; 85025; 99284; Q0162